=== PATIENT | female | born 1940 | race Caucasian/White ===

== ENCOUNTER 2019-12-17 11:10 | Outpatient (REF) | payer MEDICARE, SELFPAY ==
[2019-12-17 14:04] LABS: Estimated Average Glucose 126 mg/dL
[2019-12-17 15:04] LABS: Alanine Aminotransferase 19 U/L (0-31); Anion Gap 11 (12-20); Aspartate Amino Transferase 22 U/L (5-31); Blood Urea Nitrogen 19 mg/dL (9-16); Calcium 10.1 mg/dL (8.4-10.2); Carbon Dioxide 29 mmol/L (22-29); Chloride 105 mmol/L (96-108); Cholesterol 166 mg/dL; Estimated Glomerular Filt Rate > 60; Glucose Fasting 90 mg/dL (60-99); HDL Cholesterol 52 mg/dL; LDL Cholesterol Calculated 99 mg/dl; Potassium 4.9 mmol/l (3.3-5.1); Sodium 140 mmol/L (135-145); Triglycerides 75 mg/dL
[2019-12-18 16:37] LABS: Calcium, Ionized 5.3 mg/dL (4.8-5.6)
== END 2019-12-17 11:11 | disposition home or self-care (01) ==
LOC: HO.HMGCLDS 11:10
PROVIDERS: PCP Internal Medicine; Visit Provider Internal Medicine
DX: E78.5 Hyperlipidemia, unspecified (principal); R73.01 Impaired fasting glucose; I10 Essential (primary) hypertension; E83.52 Hypercalcemia
CPT/HCPCS: 36415; 80048; 80061; 82330; 83036; 84450; 84460

== ENCOUNTER → 2020-01-12 07:38 | Outpatient (BNVA) | payer MEDICARE, SELFPAY | PROVIDERS: PCP Internal Medicine; Referring Provider Internal Medicine; Visit Provider Internal Medicine Endocrinology, Diabetes & Metabolism | DX: E83.52 Hypercalcemia (principal); E23.6 Other disorders of pituitary gland; M85.89 Other specified disorders of bone density and structure, multiple sites | CPT/HCPCS: 99214 ==

== ENCOUNTER 2020-07-06 10:35 | Outpatient (REF) | payer MEDICARE, SELFPAY ==
[2020-07-06 14:15] LABS: Albumin Level 4.3 g/dL (3.5-5.0)
[2020-07-06 14:27] LABS: Alanine Aminotransferase 17 U/L (0-31); Anion Gap 17 (12-20); Aspartate Amino Transferase 27 U/L (5-31); Blood Urea Nitrogen 22 mg/dL (9-16); Calcium 10.3 mg/dL (8.4-10.2); Carbon Dioxide 25 mmol/L (22-29); Chloride 104 mmol/L (96-108); Cholesterol 180 mg/dL; Estimated Glomerular Filt Rate > 60; Glucose Fasting 108 mg/dL (60-99); HDL Cholesterol 53 mg/dL; LDL Cholesterol Calculated 111 mg/dl; Magnesium 2.1 mg/dL (1.6-2.6); Phosphorus 3.1 mg/dL (2.7-4.5); Potassium 4.8 mmol/L (3.3-5.1); Sodium 141 mmol/L (135-145); Triglycerides 82 mg/dL
[2020-07-06 14:49] LABS: Vitamin D 25-OH Total 27.3 ng/mL (>30)
[2020-07-08 13:46] LABS: Calcium (PTHI) 10.3 mg/dL (8.6-10.4); PTHI 42 pg/mL (14-64)
[2020-07-09 10:36] LABS: Alkaline Phosphatase Bone 12.7 mcg/L (see note)
[2020-07-11 16:32] LABS: Collagen Type I C-Telopeptide 555 pg/mL (see note)
[2020-07-13 10:27] LABS: VITAMIN D (1,25 OH) D3 74 pg/mL; Vit D (1,25-Dihydroxy) Total 74 pg/mL (18-72); Vitamin D (1,25 OH) D2 <8 pg/mL
== END 2020-07-06 10:36 | disposition home or self-care (01) ==
LOC: HO.HMGCLDS 10:35
PROVIDERS: PCP Internal Medicine; Visit Provider Internal Medicine Endocrinology, Diabetes & Metabolism
DX: E78.5 Hyperlipidemia, unspecified (principal); I10 Essential (primary) hypertension; E83.52 Hypercalcemia; N95.1 Menopausal and female climacteric states; M85.89 Other specified disorders of bone density and structure, multiple sites; R73.01 Impaired fasting glucose
CPT/HCPCS: 36415; 80048; 80061; 82040; 82306; 82523; 82652; 83735; 83970; 84075; 84100; 84450; 84460

== ENCOUNTER → 2020-07-12 07:51 | Outpatient (BNVA) | payer MEDICARE, SELFPAY | PROVIDERS: PCP Internal Medicine; Visit Provider Internal Medicine Endocrinology, Diabetes & Metabolism | DX: E83.52 Hypercalcemia (principal); M85.89 Other specified disorders of bone density and structure, multiple sites | CPT/HCPCS: 99212 ==

== ENCOUNTER 2020-07-22 11:55 | Outpatient (REF) | payer MEDICARE, SELFPAY ==
--- NOTE | ~2020-07-22 | MM_ITS ---
EXAMINATION: MM SCREENING DIGITAL BREAST TOMOSYNTHESIS, BILATERAL CLINICAL INFORMATION: Screening. Asymptomatic. The lifetime risk of breast cancer based on the Tyrer-Cuzick Model is 2%. COMPARISON: Mammography: 01/21/2018, 12/31/2016, 09/27/2015 TECHNIQUE: Digital breast tomosynthesis is performed in both the craniocaudal and mediolateral oblique views along with computer-aided detection (CAD). Synthesized 2D images are generated from the tomosynthesis. FINDINGS: There are scattered areas of fibroglandular density (ACR BI-RADS breast composition Category b). There are no significant masses, abnormal calcifications, or other abnormalities. There is no developing density. Scattered bilateral round and coarse calcifications are again noted. There are stable grouped punctate round calcifications anterior upper outer right breast. No significant changes. MM/MM tomosynthesis screening BI IMPRESSION: No mammographic evidence of malignancy. ASSESSMENT: BI-RADS 2: Benign RECOMMENDATION: Routine annual mammography screening. This patient's information was entered into a reminder system with a target due date for their next mammogram.
== END 2020-07-22 11:56 | disposition home or self-care (01) ==
LOC: HO.MAMMO 11:55
PROVIDERS: PCP Internal Medicine; Visit Provider Internal Medicine
DX: Z12.31 Encounter for screening mammogram for malignant neoplasm of breast (principal)
CPT/HCPCS: 77063; 77067

== ENCOUNTER 2021-01-18 09:02 | Outpatient (REF) | payer MEDICARE, SELFPAY ==
[2021-01-18 12:31] LABS: Alanine Aminotransferase 17 U/L (0-31); Anion Gap 12 (12-20); Aspartate Amino Transferase 23 U/L (5-31); Blood Urea Nitrogen 27 mg/dL (9-16); Calcium 10.7 mg/dL (8.4-10.2); Carbon Dioxide 28 mmol/L (22-29); Chloride 104 mmol/L (96-108); Cholesterol 186 mg/dL; Estimated Glomerular Filt Rate > 60; Glucose Fasting 113 mg/dL (60-99); HDL Cholesterol 52 mg/dL; LDL Cholesterol Calculated 115 mg/dl; Potassium 4.9 mmol/L (3.3-5.1); Sodium 139 mmol/L (135-145); Triglycerides 97 mg/dL
[2021-01-18 12:34] LABS: Vitamin D 25-OH Total 30.3 ng/mL (>30)
== END 2021-01-18 09:03 | disposition home or self-care (01) ==
LOC: HO.HMGCLDS 09:02
PROVIDERS: Visit Provider Internal Medicine
DX: M85.89 Other specified disorders of bone density and structure, multiple sites (principal); E78.5 Hyperlipidemia, unspecified; R73.01 Impaired fasting glucose; I10 Essential (primary) hypertension; Z78.0 Asymptomatic menopausal state
CPT/HCPCS: 36415; 80048; 80061; 82306; 84450; 84460

== ENCOUNTER 2021-05-17 11:00 | Outpatient (RCR) | payer MEDICARE, SELFPAY ==
--- NOTE | 2021-02-02 11:33 | MHC.PT.EP ---
[facility] [place] Office [place] Office [place] Office [address] Reny Liang [address] [phone] F: [phone] F: [phone] F: [phone] F: [phone] Physical Therapy Plan of Care Date of Evaluation: Date of Surgery: Diagnosis: This is a 81 yo female presenting to skilled PT with a script for low back pain and posterior R knee pain Assessment: This is a 81 yo female presenting to skilled PT with a script for low back pain and posterior R knee pain. She reports that her symptoms have been ongoing for about a month and a half now, no injury noted. She went to the walk-in clinic who sent her to her PCP and then referred her here (no imaging done, was provided muscle relaxers). 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 She feels better with sitting at the edge of a chair. Her pain is located at the R side low back pain (sharp), runs down the back of the R leg (achy but can be tingling at times to the foot). She also has a pin point spot at the posterior lateral aspect of the R knee that is tender to touch (this pain is constant). She is currently taking Tylenol arthritis that helps with the pain but when it wears off the pain returns. Assessment reveals pain that ranges up to an 8/10 at the worst. She demos decreased R hip and lumbar ROM, decreased BLE and core strength strength, impaired gait pattern with WBOS and lateral sway, impaired joint mobility with + s/s consistent with SIJ involvement as well as gross functional decline with walking, standing and sleeping. She is a good candidate for skilled PT 2x/wk for 6 wks. Frequency and Duration: The patient will be seen 2x/wk for 6wks Short Term Goals: I in HEP Demo proper core stab/TAC in HL, progress to sitting and standing Centralize symptoms in 2 weeks Custodial Goals: Demos functional ROM and strength Improve Oswestry by at least 10 points Improve pain at the worst to no more than 2/10 Tolerate sleeping through the night without waking from pain Treatment Plan: Modalities to reduce pain, spasms and effusion. Manual therapy to restore motion and function. Therapeutic exercise to improve strength and flexibility. Neuromuscular re-education for posture and balance. Therapeutic activities to return to functional activities of daily living. Electronically signed by: Bonnie Brock PT Please sign and return to therapist. Thank you for your referral.
--- NOTE | 2021-04-12 11:56 | MHC.PT.PR ---
[facility] [place] Office [place] Office [place] Office [address] [phone] F: [phone] F: [phone] F: [phone] F: [phone] Physical Therapy Progress Note Diagnosis: This is a 81 yo female presenting to skilled PT with a script for low back pain and posterior R knee pain Date of Surgery: Date of Evaluation: 02/02/21 Treatments to Date: 8 Cancellations to Date: 0 No Shows to Date: 0 Subjective: Patient comes in reporting I am walking better, whatever you did helped. Pain Score and Location: 0 low back R side and R leg Objective Measures: Please see eval Assessment: 04/12: Charla returns reporting that the last session was helpful with pain and gait pattern. She reports that she feels like she is getting stronger even though she does not always do her HEP. She continues to have a tender palpable nodule at the posterior R knee. I educated her that I do not think this is sciatica. She may benefit from an image of her knee to better dx this. She is also concerned that she has not been called by her PCP for a BP check. She states that she was supposed to go but her appointment was cancelled and she has not heard back from the office since. States that her BP was in 180-190's last night. I took her BP manually in clinic which was 148/92. She requested that I send a message through the portal to see if she could be seen for both her knee to see if image is warranted and for a BP check. PT Plan: Continue with PT Frequency and Duration: The patient will be seen 2x/wk for 6wks Treatment Plan: Therapeutic Exercise Dynamic Therapeutic Activities Neuromuscular Re-ed Manual Therapies Gait Home Exercise Program Patient Education Hot or Cold Pack Continue PT POC Reviewed/ Agreed with Student Documentation: Therapist: Thank you once again for your referral.
--- NOTE | 2021-05-17 12:54 | MHC.PT.DC ---
[facility] [place] Office [place] Office [place] Office [address] [phone] F: [phone] F: [phone] F: [phone] F: [phone] Physical Therapy Discharge Report Diagnosis: This is a 81 yo female presenting to skilled PT with a script for low back pain and posterior R knee pain Date of Surgery: Date of Evaluation: 02/02/21 Date of Discharge: 05/17/21 Treatments to Date: 13 Cancellations to Date: 0 No Shows to Date: 0 Discharge Status: Achieved Goals Improved Function Independent with HEP Discharge Summary: Charla is doing much better, pain and gait have improved since initial eval. She has a thorough HEP and is I in her program. She also participates in water aerobics. She no longer has leg pain and has met her PT goals. She is I and ready for DC at this time. DC to HEP. Electronically signed by: Bonnie Brock, PT Please sign and return to therapist. Thank you for your referral.
== END 2021-05-17 12:54 | disposition home or self-care (01) ==
LOC: HO.PTCHIC 11:00
PROVIDERS: PCP Internal Medicine; Visit Provider Internal Medicine
DX: M54.50 Low back pain, unspecified (principal); M25.561 Pain in right knee
CPT/HCPCS: 97035; 97110; 97140; 97162

== ENCOUNTER 2021-06-08 10:35 | Outpatient (REF) | payer MEDICARE, SELFPAY ==
[2021-06-08 14:29] LABS: Alanine Aminotransferase 20 U/L (0-31); Anion Gap 12 (12-20); Aspartate Amino Transferase 22 U/L (5-31); Blood Urea Nitrogen 24 mg/dL (9-16); Calcium 10.1 mg/dL (8.4-10.2); Carbon Dioxide 27 mmol/L (22-29); Chloride 106 mmol/L (96-108); Cholesterol 170 mg/dL; Estimated Glomerular Filt Rate > 60; Glucose Fasting 104 mg/dL (60-99); HDL Cholesterol 54 mg/dL; LDL Cholesterol Calculated 101 mg/dl; Potassium 4.8 mmol/L (3.3-5.1); Sodium 140 mmol/L (135-145); Triglycerides 77 mg/dL
[2021-06-08 14:39] LABS: Estimated Average Glucose 128 mg/dL; Hemoglobin A1c % 6.1 %
[2021-06-08 14:50] LABS: Vitamin D 25-OH Total 26.7 ng/mL (>30)
== END 2021-06-08 10:36 | disposition home or self-care (01) ==
LOC: HO.HMGCLDS 10:35
PROVIDERS: PCP Internal Medicine; Visit Provider Internal Medicine
DX: E66.9 Obesity, unspecified (principal); N95.1 Menopausal and female climacteric states; M85.89 Other specified disorders of bone density and structure, multiple sites; R73.01 Impaired fasting glucose; E78.5 Hyperlipidemia, unspecified; I10 Essential (primary) hypertension
CPT/HCPCS: 36415; 80048; 80061; 82306; 83036; 84450; 84460

== ENCOUNTER → 2021-09-05 07:59 | Outpatient (BNVA) | payer MEDICARE, SELFPAY | PROVIDERS: PCP Internal Medicine; Visit Provider Internal Medicine Endocrinology, Diabetes & Metabolism | DX: E83.52 Hypercalcemia (principal) | CPT/HCPCS: 99212 ==

== ENCOUNTER 2021-11-07 08:35 | Outpatient (REF) | payer MEDICARE, SELFPAY ==
--- NOTE | ~2021-11-07 | MM_ITS ---
EXAMINATION: BONE DENSITOMETRY CLINICAL INDICATION: Osteopenia. COMPARISON: Previous BD dated 10/27/2019 and baseline BD dated 09/07/2014. TECHNIQUE: Using a [employer] DXA System (software version: 13.1) manufactured by [employer], dual-energy x-ray absorptiometry was performed of the lumbar spine and left hip. The images are of good technical quality. Summary results are attached. FINDINGS: AP SPINE L1-L4: Current: BMD 1.362 g/cm2, Z-score 2.7, T-score 1.5, normal, 0.7% decrease from previous, 4.1% decrease from baseline (<5% change is not significant). Prior: BMD 1.372 g/cm2. Baseline: BMD 1.420 g/cm2. LEFT FEMUR, NECK: Current: BMD 0.716 g/cm2, Z-score -0.6, T-score -2.3, osteopenia. Prior: BMD 0.725 g/cm2. Baseline: BMD 0.841 g/cm2. LEFT FEMUR, TOTAL: Current: BMD 0.903 g/cm2, Z-score 0.7, T-score -0.8, normal, 1.1% decrease from previous, 10.3% decrease from baseline (<5% change is not significant). Prior: BMD 0.913 g/cm2. Baseline: BMD 1.007 g/cm2. IDENTIFIED RISK FACTORS: Early menopause, height loss, secondary osteoporosis. HISTORY OF FRACTURE: None listed. MEDICATIONS: Vitamin D. MM/XR DEXA axial skeleton IMPRESSION: 1. DIAGNOSIS: Osteopenia based on the lowest T-score value of -2.3 in the femoral neck applying World Health Organization criteria. 2. 10-YEAR FRACTURE RISK PREDICTION, FRAX: Major osteoporotic fracture (clinical spine, forearm, hip or shoulder) 15.8%. Hip fracture 4.9%. 3. Treatment Recommendations: NOF guidelines recommend consideration for treatment in postmenopausal women and men age 50 and older presenting with the following: -A hip or vertebral (clinical or morphometric) fracture. -T-score less than or equal to -2.5 at the femoral neck or spine after appropriate evaluation to exclude secondary causes. -Low bone mass at the hip or spine and a 10-year fracture probability by FRAX of greater than or equal to 3% for hip fracture or greater than or equal to 20% for major osteoporotic fracture based on the [place] adapted WHO algorithm. 4. Other Recommendations: All treatment decisions require clinical judgment and consideration of individual patient factors, including patient preferences, comorbidities, previous drug use, risk factors not captured in the FRAX model (e.g. frailty, falls, vitamin D deficiency, increased bone turnover, interval significant decline in bone density) and possible under or overestimation of fracture risk by FRAX. Additional medical evaluation for secondary cause of low bone mineral density may be appropriate. FUTURE SCAN RECOMMENDATION: People with diagnosed cases of osteoporosis or at high risk for fracture should have regular bone mineral density tests. For patients eligible for Medicare, routine testing is allowed once every 2 years. The testing frequency can be increased to one year for patients who have rapidly progressing disease, those who are receiving or discontinuing medical therapy to restore bone mass, or have additional risk factors.
--- NOTE | ~2021-11-07 | MM_ITS ---
EXAMINATION: MM SCREENING DIGITAL BREAST TOMOSYNTHESIS, BILATERAL CLINICAL INFORMATION: Screening. Asymptomatic. The lifetime risk of breast cancer based on the Tyrer-Cuzick Model is 1.5%. COMPARISON: Mammography: July 22, 2020 and studies dating back to August 01, 2009 TECHNIQUE: Digital breast tomosynthesis is performed in both the craniocaudal and mediolateral oblique views along with computer-aided detection (CAD). Synthesized 2D images are generated from the tomosynthesis. FINDINGS: There are scattered areas of fibroglandular density (ACR BI-RADS breast composition Category b). There are no new significant masses, abnormal calcifications, or other abnormalities. This density about the anterior lateral aspect of the right breast on craniocaudal view however on young symphysis views this is seen to represent a fold. MM/MM tomosynthesis screening BI IMPRESSION: No mammographic evidence of malignancy. ASSESSMENT: BI-RADS 2: Benign RECOMMENDATION: Routine annual mammography screening. This patient's information was entered into a reminder system with a target due date for their next mammogram.
== END 2021-11-07 08:36 | disposition home or self-care (01) ==
LOC: HO.MAMMO 08:35
PROVIDERS: Visit Provider Internal Medicine
DX: Z12.31 Encounter for screening mammogram for malignant neoplasm of breast (principal); Z13.820 Encounter for screening for osteoporosis; Z78.0 Asymptomatic menopausal state; M85.89 Other specified disorders of bone density and structure, multiple sites
CPT/HCPCS: 77063; 77067; 77080

== ENCOUNTER 2022-02-27 07:30 | Outpatient (REF) | payer MEDICARE, SELFPAY ==
[2022-02-27 12:21] LABS: Estimated Average Glucose 123 mg/dL; Hemoglobin A1c % 5.9 %
[2022-02-27 12:51] LABS: Alanine Aminotransferase 23 U/L (0-31); Anion Gap 12 (12-20); Aspartate Amino Transferase 25 U/L (5-31); Blood Urea Nitrogen 25 mg/dL (9-16); Calcium 10.5 mg/dL (8.4-10.2); Carbon Dioxide 30 mmol/L (22-29); Chloride 106 mmol/L (96-108); Cholesterol 174 mg/dL; Estimated Glomerular Filt Rate > 60; Glucose Fasting 123 mg/dL (60-99); HDL Cholesterol 58 mg/dL; LDL Cholesterol Calculated 102 mg/dl; Potassium 4.2 mmol/L (3.3-5.1); Sodium 144 mmol/L (135-145); Triglycerides 73 mg/dL; Vitamin D 25-OH Total 34.8 ng/mL (>30)
== END 2022-02-27 07:31 | disposition home or self-care (01) ==
LOC: HO.HMGCLDS 07:30
PROVIDERS: PCP Internal Medicine; Visit Provider Internal Medicine
DX: E78.5 Hyperlipidemia, unspecified (principal); I10 Essential (primary) hypertension; M85.89 Other specified disorders of bone density and structure, multiple sites; R73.01 Impaired fasting glucose; Z78.0 Asymptomatic menopausal state
CPT/HCPCS: 36415; 80048; 80061; 82306; 83036; 84450; 84460

== ENCOUNTER 2022-06-01 09:46 | Outpatient (REF) | payer MEDICARE, SELFPAY ==
[2022-06-01 13:01] LABS: Estimated Average Glucose 120 mg/dL; Hemoglobin A1c % 5.8 %
[2022-06-01 13:21] LABS: Alanine Aminotransferase 14 U/L (0-31); Anion Gap 11 (12-20); Aspartate Amino Transferase 20 U/L (5-31); Blood Urea Nitrogen 21 mg/dL (9-16); Calcium 9.9 mg/dL (8.4-10.2); Carbon Dioxide 28 mmol/L (22-29); Chloride 102 mmol/L (96-108); Cholesterol 176 mg/dL; Estimated Glomerular Filt Rate > 60; Glucose Fasting 119 mg/dL (60-99); HDL Cholesterol 49 mg/dL; LDL Cholesterol Calculated 111 mg/dl; Potassium 4.2 mmol/L (3.3-5.1); Sodium 137 mmol/L (135-145); Triglycerides 83 mg/dL
[2022-06-04 14:04] LABS: Calcium (PTHI) 10.3 mg/dL (8.6-10.4); PTHI 14 pg/mL (16-77)
[2022-06-05 19:33] LABS: Calcium, Ionized 5.4 mg/dL (4.7-5.5)
== END 2022-06-01 09:47 | disposition home or self-care (01) ==
LOC: HO.HMGCLDS 09:46
PROVIDERS: Visit Provider Internal Medicine
DX: E66.9 Obesity, unspecified (principal); E78.5 Hyperlipidemia, unspecified; E83.52 Hypercalcemia; I10 Essential (primary) hypertension; R73.01 Impaired fasting glucose
CPT/HCPCS: 36415; 80048; 80061; 82330; 83036; 83970; 84450; 84460

== ENCOUNTER 2022-11-07 10:09 | Outpatient (REF) | payer MEDICARE, SELFPAY ==
[2022-11-07 14:03] LABS: Alanine Aminotransferase 11 U/L (0-31); Anion Gap 11 (12-20); Aspartate Amino Transferase 18 U/L (5-31); Blood Urea Nitrogen 18 mg/dL (9-16); Calcium 10.5 mg/dL (8.4-10.2); Carbon Dioxide 26 mmol/L (22-29); Chloride 100 mmol/L (96-108); Cholesterol 175 mg/dL (<200); Estimated Glomerular Filt Rate > 60; Glucose Fasting 118 mg/dL (60-99); HDL Cholesterol 50 mg/dL (>40); LDL Cholesterol Calculated 101 mg/dL (<100); Potassium 4.2 mmol/L (3.3-5.1); Sodium 133 mmol/L (135-145); Triglycerides 120 mg/dL (<150)
[2022-11-07 14:18] LABS: Estimated Average Glucose 117 mg/dL; Hemoglobin A1c % 5.7 % (<6.0)
[2022-11-07 14:24] LABS: Vitamin D 25-OH Total 46.4 ng/mL (>30)
== END 2022-11-07 10:10 | disposition home or self-care (01) ==
LOC: HO.HMGCLDS 10:09
PROVIDERS: PCP Internal Medicine; Visit Provider Internal Medicine
DX: E66.9 Obesity, unspecified (principal); E78.5 Hyperlipidemia, unspecified; I10 Essential (primary) hypertension; M85.89 Other specified disorders of bone density and structure, multiple sites; N39.3 Stress incontinence (female) (male); N95.1 Menopausal and female climacteric states; R73.01 Impaired fasting glucose
CPT/HCPCS: 36415; 80048; 80061; 82306; 83036; 84450; 84460

== ENCOUNTER 2022-11-12 11:31 | Outpatient (AMB) | payer MEDICARE, SELFPAY ==
--- NOTE | 2022-11-12 11:46 | A.OFFPC_ITS ---
Vital Signs 11/12/22 12:02 Height 5 ft Weight 182 lb BMI 35.5 BP 128/84 Blood Pressure Location Rt brachial Position Sitting Pulse 66 Pulse Source Pulse Oximeter Pulse Oximetry (%) 98 Oxygen Delivery Method Room Air Intake Visit Reasons: 6m follow up HTN Intake Note: Pt is here today for her 6 mo. f/u HTN Allergies Yjdnqtl-JFN-UsD Reductase Inhibitor [Hmg-Coa Reductase Inhibitors (Stati] Allergy (Severe, Verified 11/12/22 12:27) SWELLING Medication List - Last Reconciled 11/12/22 by Adrienne Ruiz MD atenolol 100 mg PO DAILY cholecalciferol (vitamin D3) 25 mcg PO DAILY cyanocobalamin (vitamin B-12) 1,000 mcg PO DAILY fenofibrate nanocrystallized 145 mg PO DAILY fluticasone propionate 50 mcg/actuation (Aller-Kyle) 1 spray intranasal DAILY olmesartan-hydrochlorothiazide 20-12.5 mg 1 tab PO DAILY oxybutynin chloride ER 10 mg PO DAILY Tobacco use date assessed: 11/12/22 Fall risk assessment: No Falls in past year Last assessed Fall Risk: 11/12/22 Dental Screening Dental Screen Date: 11/12/22 Did you have a dental visit in the last 12 months?: Yes Did you have a dental problem in the last 6 months where you did not have access to dental care?: No Was dental information given to patient?: Patient has dentist HPI 6m follow up HTN HPI Details 81-year-old lady here today accompanied by daughter for her follow-up. She has hypertension, prediabetes, dyslipidemia, and osteopenia of multiple sites. Has been compliant with taking her medications, with blood pressure today within normal limits. She had recent fasting labs done which showed elevated fasting glucose but the hemoglobin A1c is at 5.7%, fasting lipids are within normal limits as well as vitamin-D level, calcium mildly elevated at 10.5. She has been evaluated by Dr. Mayo in the past for possible hyperpar athyroidism which came back normal. Patient however has been complaining of getting more short of breath on exertion and has a dry cough all the time. Patient's daughter states that they would have to stop several times during their walks for her to catch her breath. 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 She has been seen at [facility] in by Dr. Dawson January 15, 2019 for evaluation of her chronic cough and was also mention that she was seen previously in 2010 with similar symptoms. Cough seems to be triggered by different chemicals at work and would also was need to take a cough drop to stop coughing. She has minimal GERD, and has a persistent postnasal drip. Has been taking Claritin and tried several [id number] antihistamines which affords only temporary relief. She has not had any abnormal weight loss, and overall feels well except for symptoms mentioned. She has history of nodules, and in [address] done which showed a 3 mm nodule in the left lung base and two 2 mm nodules at the right lung base, , and 0 4 mm nodule at the right lung base. She has been referred to Dr. Kate for evaluation at that time. Chest x- ray done 07/21/2018 showed clear lung marquez bilaterally. Repeat CT of chest without contrast done 05/14/2019 showed presence of numerous solid bilateral lung nodules, the largest is 7 mm right upper lobe nodule and these are unchanged from the prior exam 02/02/2019 , without new or enlarging nodules seen, no pleural effusion or pneumothorax noted. She was supposed to have a repeat CT of chest but was lost to follow-up during the pandemic. Cough was suspected to be related to postnasal drip and GERD and she was started on Flonase nasal spray and recommended to start omeprazole 20 mg twice a day. Patient states that she has been using the spray and omeprazole which does not seem to afford much improvement . For patient has not really been taking medications regularly.. As per patient of pulmonary function test with methacholine challenge was also done at that time but results unavailable to me. Also has been complaining of increasing urinary stress and urge incontinence, despite taking oxybutynin ER 10 mg daily. States that effect of medication does not last at 24 are. [facility] Medical History (Updated 11/13/22 @ 05:12 by Adrienne Ruiz MD) Allergic rhinitis with postnasal drip Breast cancer screening by mammogram Dyslipidemia Empty sella Essential hypertension Exertional dyspnea Female stress incontinence Hypercalcemia Impaired fasting glucose Obesity Osteopenia of multiple sites Post menopausal syndrome Pulmonary nodules Recurrent dry cough Vitamin D deficiency Surgical History History of tonsillectomy History of tubal ligation Family History Father Alcoholic Mental illness in member of household Mother Colon cancer Brother CVD (cardiovascular disease) Heart disease Brother Heart disease Sister No problems noted. Sister No problems noted. Sister No problems noted. Son No problems noted. Daughter No problems noted. Social History Housing: House Alcohol intake: current Patient Tobacco Use Status: Never used Tobacco e-Cigarette/Vaping Use: Never Used Current occupational status: retired Cognitive needs: No Hearing needs: No Vision needs: Yes Questionnaire Thrive Questionnaire Date Thrive assessed: 06/06/22 AUDIT C Alcohol Use Questionnaire (AUDIT-C) 1. How often do you have a drink containing alcohol?: Monthly or less 2. How many drinks containing alcohol do you have on a typical day when you are drinking?: 1 or 2 3. How often do you have six or more drinks on one occasion?: Never Total Score: 1 ERYN-7 AMB Questionnaire ERYN-7 Date ERYN - 7 assessed: 06/06/22 Source: Developed by Drs. Edinson Junior, Linda Little, Giovanni Kramer and colleagues, with an educational johanna from [employer]. Review of Systems Const Denies fatigue, Denies frequent falls, Denies headache(s), Denies lethargy and Denies weakness Eyes Denies change in vision ENT Reports Normal hearing present, Denies dysphagia, Denies dizziness, Denies dry mouth, Denies headache(s), Denies hoarseness, Denies sinus pain and Denies sore throat Card Denies chest pain and Denies irregular heart rhythm Resp Reports as per HPI GI Denies abdominal pain, Denies bloating, Denies change in bowel habits, Denies dy sphagia, Denies nausea and Denies vomiting Reports as per HPI, Denies urinary frequency, Denies difficulty voiding and Denies dysuria Musc Denies back pain, Denies muscle cramps, Denies numbness and Denies tingling Neuro Reports Normal hearing present, Denies burning sensations, Denies dizziness, Denies frequent falls, Denies headache(s), Denies numbness, Denies Sensory deficit (Neuro), Denies tingling, Denies paresthesias, Denies tremor(s) and Denies weakness Endo Denies fatigue, Denies polyphagia, Denies polydipsia and Denies polyuria Brennon/Lymph Denies easy bleeding and Denies easy bruising Aller/Immun Reports no additional complaints Physical exam (Primary Care) Vital Signs: Last Vital Signs Pulse 66 11/12/22 12:02 BP 128/84 11/12/22 12:02 Pulse Ox 98 11/12/22 12:02 Oxygen Delivery Method Room Air 11/12/22 12:02 BMI result Body Mass Index 35.5 Tobacco/Smoking Status: Tobacco use Status Tobacco use date assessed 11/12/22 11/12/22 12:05 Patient Tobacco Use Status Never used Tobacco 11/12/22 11:46 e-Cigarette/Vaping Use Never Used 11/12/22 11:46 Thrive Assessment: Date of Thrive Assessment Date Thrive assessed 06/06/22 11/12/22 11:46 Const General: comfortable and no acute distress Orientation/consciousness: patient oriented x3 HENMT Head: Yes normocephalic Ears: hearing grossly normal bilaterally, external ears normal, TM's normal bilaterally and EAC's normal General nose exam: Normal external nose present and No nasal discharge present Face and sinus: Yes face symmetric Mouth: Normal oral and palatal mucosa present and moist mucous membranes Eyes General: appearance normal, both eyes and all related structures Neck Neck: Yes full ROM, Yes no lymphadenopathy and Yes supple Chest Other: Declined exam Resp Auscultation: clear to auscultation bilaterally Cardio Rate: regular rate Rhythm: regular rhythm Heart sounds: S1 normal heart sound present and S2 normal heart sound present GI Palpation (GI): Soft to palpation, nontender and no guarding General: Yes no CVA tenderness Back/Spine/Pelvis Back: no CVA tenderness and No back tenderness Skin General skin exam: no rashes or lesions noted Neuro General: patient oriented x3, gait normal, tone normal, moves all extremities, Normal light touch and pain sensation and no focal motor deficits Cranial nerves: Yes Normal hearing present Sensory Exam: No Sensory deficit (Neuro) Extrem General: Yes full ROM, Yes no joint enlargement, Yes no pedal edema and Yes normal gait Results Reviewed Results Reviewed: Name: AndrewCharla perkins Age/Sex: 81/F : 1940 Unit#: [id number] Attend Dr: Adrienne Ruiz MD Re11/07/22 Status: DEP REF Location: [facility] Disch: SPEC : [id number] LIZETTE: 11/07/22 STATUS: COMP REQ : [id number] RECD: 11/07/22-[address]: Adrienne Ruiz MD COMP: 11/07/22 ENTERED: 11/07/22-[address]: ORDERED: Met Prof Fast, AST, ALT, Lipid Panel, Vitamin D 25-OH Test Result Flag Reference Site Sodium 133 L 135-145 mmol/L Potassium 4.2 3.3-5.1 mmol/L CL 100 96-108 mmol/L CO2 26 22-29 mmol/L Gap 11 L 12-20 BUN 18 H 9-16 mg/dL Creat 0.79 0.5-1.4 mg/dL EGFR > 60 NOTE: For -[place] individuals, multiply the result by 1.210. Chronic Kidney Disease: Estimated GFR < 60 mL/min/1.73m2 Severe Kidney Disease: Estimated GFR < 15 mL/min/1.73m2 FBS 118 H 60-99 mg/dL A fasting glucose from 100-125 mg/dl is considered impaired (pre-diabetes). CA 10.5 # H 8.4-10.2 mg/dL AST (GOT) 18 5-31 U/L ALT (GPT) 11 0-31 U/L Triglyceride 120 <150 mg/dL Desirable Triglyceride: less than 150 mg/dL Borderline High Triglyceride 150-199 mg/dL High Triglyceride: 200-499 mg/dL Very High Triglyceride: greater than or equal to 5OO mg/dL Cholesterol 175 <200 mg/dL Desirable Cholesterol: less than 200 mg/dL Borderline High Cholesterol: 200-239 mg/dL High Cholesterol: greater than 239 mg/dL LDL Calculated 101 H <100 mg/dL Desirable LDL: less than 100 mg/dL Near Optimal/Above Optimal LDL: 110-129 mg/dL Borderline High LDL: 130-159 mg/dL High LDL: 160-189 mg/dL Very High LDL: greater than or equal to 190 mg/dL HDL 50 >40 mg/dL Desirable HDL: greater than 40 mg/dL Note: This HDL assay may give artificially low results in patients with liver disease. Vit D 25-OH Tot 46.4 >30 ng/mL Health Based Reference Values* < 20 ng/mL Deficient 20-30 ng/mL Insufficient > 30 ng/mL Sufficient Laboratory Tests 11/07/22 10:18 Estimat Average Glucose 117 Hemoglobin A1c % 5.7 Assessment and Plan Assessment & Plan (1) Recurrent dry cough: Code(s): R05.8 - Other specified cough Plan: Will obtain pulmonary consult (2) Exertional dyspnea: Code(s): R06.09 - Other forms of dyspnea Plan: Obtain pulmonary consult (3) Pulmonary nodules: Code(s): R91.8 - Other nonspecific abnormal finding of lung field (4) Obesity: Code(s): E66.9 - Obesity, unspecified Plan: Discussed need to increase activity and wt reduction. Recommended focusing on improving your health instead of dieting. : Eat Mediterranean diet, limit foods high in fat, sugar, and calories, eat slowly, pay attention to portion sizes, plan your meals ahead of time, start regular physical activity 150 minutes of moderate intensity exercise or 90 minutes/week of vigorous exercise and increase water intake. (5) Female stress incontinence: Code(s): N39.3 - Stress incontinence (female) (male) Plan: Will increase oxybutynin ER dose to 50 mg once a day in a.m.. Advised to do bladder training, use the bathroom at least every 2 hours during the day, avoid over filling, and avoid drinking a lot of caffeinated drinks (6) Impaired fasting glucose: Code(s): R73.01 - Impaired fasting glucose Plan: Your fasting blood sugars elevated above 100 mg/dL. Impaired glucose metabolism O2 at risk for developing diabetes mellitus type 2, as well as heart attack and stroke later on. Lifestyle changes at just weight loss, healthy eating habits, and regular exercise are important, and can prevent the progression to diabetes (7) Dyslipidemia: Code(s): E78.5 - Hyperlipidemia, unspecified Plan: Reviewed recent fasting lipid profile with patient with levels within normal limits . Continue with 5 5 mg daily , in addition to adherence to low- cholesterol diet and regular exercise, at least 30 minutes 3 to 4 times a week. Advised patient to make healthy food choices, eat more fruits, vegetables, whole grains, wild caught fish and low-fat dairy. Limit amount of meat and fried or fatty food products, as well as processed foods and fast foods. Follow-up scheduled with repeat fasting lipid panel in 3 months. (8) Essential hypertension: Code(s): I10 - Essential (primary) hypertension Plan: Blood pressure at goal of less than 130/80. Continue with atenolol 100 mg daily, and olmesartan-hydrochlorothiazide 20-12.5 mg daily. Reinforced importance of following a low sodium diet, getting regular exercise, and lowering stress levels. (9) Allergic rhinitis with postnasal drip: Code(s): J30.9 - Allergic rhinitis, unspecified; R09.82 - Postnasal drip Plan: Advise to continue using her Flonase nasal spray once a day either a.m. or p.m. and will try on fexofenadine 60 mg per tablet to take 1 every 12 hours as needed for nasal congestion and postnasal drainage. (10) Hypercalcemia: Code(s): E83.52 - Hypercalcemia Plan: Repeat serum ionized calcium Orders: Orders Alanine Aminotransferase 02/15/23 E66.9 - Obesity, unspecified, E78.5 - Hyperlipidemia, unspecified, I10 - Essential (primary) hypertension, N39.3 - Stress incontinence (female) (male), R73.01 - Impaired fasting glucose Aspartate Amino Transferase 02/15/23 E66.9 - Obesity, unspecified, E78.5 - Hyperlipidemia, unspecified, I10 - Essential (primary) hypertension, N39.3 - Stress incontinence (female) (male), R73.01 - Impaired fasting glucose Comprehensive [place]. Panel Fast 02/15/23 E66.9 - Obesity, unspecified, E78.5 - Hyperlipidemia, unspecified, I10 - Essential (primary) hypertension, N39.3 - Stress incontinence (female) (male), R73.01 - Impaired fasting glucose Hemoglobin A1c 02/15/23 E66.9 - Obesity, unspecified, E78.5 - Hyperlipidemia, unspecified, I10 - Essential (primary) hypertension, N39.3 - Stress incontinence (female) (male), R73.01 - Impaired fasting glucose Lipid Panel 02/15/23 E66.9 - Obesity, unspecified, E78.5 - Hyperlipidemia, unspecified, I10 - Essential (primary) hypertension, N39.3 - Stress incontinence (female) (male), R73.01 - Impaired fasting glucose Calcium, Ionized 02/15/23 E66.9 - Obesity, unspecified, E78.5 - Hyperlipidemia, unspecified, I10 - Essential (primary) hypertension, N39.3 - Stress incontinence (female) (male), R73.01 - Impaired fasting glucose Referrals Pulmonary Medicine Referral R05.8 - Other specified cough, R06.09 - Other forms of dyspnea, R91.8 - Other nonspecific abnormal finding of lung field Medications: New fexofenadine 60 mg PO Q12H PRN 60 tabs 0RF allergy symptoms Changed From oxybutynin chloride ER 10 mg PO DAILY 90 tabs 1RF To oxybutynin chloride ER 15 mg PO DAILY 30 tabs 1RF Coding Level of Care Code Est Pt Level 4 (64914) Diagnoses Recurrent dry cough R05.8 Exertional dyspnea R06.09 Pulmonary nodules R91.8 Obesity E66.9 Female stress incontinence N39.3 Impaired fasting glucose R73.01 Dyslipidemia E78.5 Essential hypertension I10 Allergic rhinitis with postnasal drip J30.9; R09.82 Hypercalcemia E83.52
[2022-11-12 12:02] VITALS: BP 128/84; PULSE 66; O2SAT 98; BMI 35.5
== END 2022-11-12 13:02 | disposition home or self-care (01) ==
PROVIDERS: Visit Provider Internal Medicine
DX: I10 Essential (primary) hypertension (principal); E66.9 Obesity, unspecified; E83.52 Hypercalcemia; Z68.35 Body mass index [BMI] 35.0-35.9, adult; R05.8 Other specified cough; R06.09 Other forms of dyspnea; R91.8 Other nonspecific abnormal finding of lung field; N39.3 Stress incontinence (female) (male); R73.01 Impaired fasting glucose; E78.5 Hyperlipidemia, unspecified; J30.9 Allergic rhinitis, unspecified; R09.82 Postnasal drip
CPT/HCPCS: 99214

== ENCOUNTER 2023-01-03 09:45 | Outpatient (AMB) | payer MEDICARE, SELFPAY ==
[2023-01-03 09:47] VITALS: BP 147/88; PULSE 73; O2SAT 99; BMI 35.1
--- NOTE | 2023-01-03 09:47 | MHC.OFFVIS ---
Intake Vital Signs 01/03/23 09:47 Height 5 ft Weight 179 lb 10.828 oz BMI 35.1 BP 147/88 H Blood Pressure Location Rt brachial Position Sitting Pulse 73 Pulse Source Doppler Pulse Oximetry (%) 99 Oxygen Delivery Method Room Air Intake Visit Reasons: Pulmonary nodule Allergies Vsfqrps-MRO-DyW Reductase Inhibitor [Hmg-Coa Reductase Inhibitors (Stati] Allergy (Severe, Verified 01/03/23 09:52) SWELLING HPI Pulmonary nodule HPI Details 82-year-old lady, lifetime nonsmoker, referred for evaluation of cough ongoing for 30-40 years intermittently productive of clear sputum. 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 She denies any other pulmonary related personal history. Patient does have a history of lung cancer in her mother who was an avid smoker. Patient used to have dogs. Currently she has no pets. She denies seasonal allergies. Patient has been tried on PPI, multiple allergy medications, and Mucinex with suboptimal control of his symptoms. She denies recent pulmonary function or allergy testing. Patient does have for CT scan from 2019 showing 7 mm pulmonary nodule with no further follow-up. [facility] Medical History (Updated 01/03/23 @ 10:30 by Олег Greenberg MD) Allergic rhinitis with postnasal drip Exertional dyspnea Recurrent dry cough Vitamin D deficiency Breast cancer screening by mammogram Empty sella Hypercalcemia Pulmonary nodules Obesity Post menopausal syndrome Osteopenia of multiple sites Female stress incontinence Impaired fasting glucose Dyslipidemia Essential hypertension Surgical History History of tubal ligation History of tonsillectomy Family History Father Alcoholic Mental illness in member of household Mother Colon cancer Brother CVD (cardiovascular disease) Heart disease Brother Heart disease Sister No problems noted. Sister No problems noted. Sister No problems noted. Son No problems noted. Daughter No problems noted. Social History Housing: House Alcohol intake: current Patient Tobacco Use Status: Never used Tobacco e-Cigarette/Vaping Use: Never Used Current occupational status: retired Cognitive needs: No Hearing needs: No Vision needs: Yes Review of Systems Const Denies daytime sleepiness, Denies excessive sweating, Denies fatigue, Denies fever(s), Denies lethargy, Denies malaise, Denies night sweats, Denies snoring and Denies weight loss Eyes Denies blurry vision and Denies itchy eyes ENT Denies nasal congestion, Denies post nasal drip, Denies sinus pain, Denies sinus pressure and Denies other ( Thrush) Card Denies chest pain, Denies pedal edema, Denies dyspnea, Reports dyspnea on exertion, Denies orthopnea and Denies paroxysmal nocturnal dyspnea Resp Reports cough, Denies hemoptysis, Denies excessive phlegm production, Denies dyspnea, Reports dyspnea on exertion, Denies snoring and Denies wheezing GI Denies abdominal pain and Denies heartburn Musc Denies myalgias, Denies arthralgias and Denies joint swelling Skin/Breast Denies rash Neuro Denies memory loss and Denies seizure-like activity Psych Denies abnormal sleep pattern, Denies anxiety and Denies memory loss Endo Denies excessive sweating, Denies fatigue and Denies heat intolerance Brennon/Lymph Denies easy bruising Aller/Immun Denies itchy eyes, Denies seasonal rhinorrhea and Denies wheezing Physical Exam Vital Signs: Last Vital Signs Pulse 73 01/03/23 09:47 BP 147/88 H 01/03/23 09:47 Pulse Ox 99 01/03/23 09:47 Oxygen Delivery Method Room Air 01/03/23 09:47 BMI result Body Mass Index 35.1 Const General: no acute distress and alert Nutritional Appearance: not obese Orientation/consciousness: Other orientation findings ( oriented) HEENT Head: Yes atraumatic Eyes General: appearance normal, both eyes and all related structures Sclerae: sclerae normal EOM: EOMs intact bilaterally Neck Neck: Yes supple Lymphatic: no lymphadenopathy noted Resp Effort & Inspection: normal respiratory effort and no use of accessory muscles Auscultation: clear to auscultation bilaterally Cardio Rate: regular rate Rhythm: regular rhythm Heart sounds: no gallops, no murmurs and no rubs Skin General skin exam: other ( warm) Extrem General: No clubbing, No cyanosis and No edema Assessment & Plan Assessment & Plan (1) Asthma: Code(s): J45.909 - Unspecified asthma, uncomplicated Plan: Likely underlying cough variant asthma. Will obtain full PFT. (2) Environmental allergies: Code(s): Z91.09 - Other allergy status, other than to drugs and biological substances Plan: Will obtain CBC with differential, IgE, and RAST for further evaluation. (3) Pulmonary nodules: Code(s): R91.8 - Other nonspecific abnormal finding of lung field Plan: Will repeat CT chest to assess previously noted 7 mm pulmonary nodule. (4) Exertional dyspnea: Code(s): R06.09 - Other forms of dyspnea Plan: Likely multifactorial. Will obtain 2D echocardiogram to assess cardiac contribution. Orders: Orders Complete Blood Count Auto Diff Today Z91.09 - Other allergy status, other than to drugs and biological substances Rast Allergen Today Z91.09 - Other allergy status, other than to drugs and biological substances PFT pulmonary function test Today Z91.09 - Other allergy status, other than to drugs and biological substances CT chest wo IV con Today R91.8 - Other nonspecific abnormal finding of lung field CA echo transthoracic complete Today R06.09 - Other forms of dyspnea Coding Level of Care Code New Pt Level 4 (29205) Diagnoses Asthma J45.909 Environmental allergies Z91.09 Pulmonary nodules R91.8 Exertional dyspnea R06.09
== END 2023-01-03 10:35 | disposition home or self-care (01) ==
PROVIDERS: PCP Internal Medicine; Referring Provider Internal Medicine; Visit Provider Internal Medicine Pulmonary Disease
DX: J45.909 Unspecified asthma, uncomplicated (principal); Z91.09 Other allergy status, other than to drugs and biological substances; R91.8 Other nonspecific abnormal finding of lung field; R06.09 Other forms of dyspnea
CPT/HCPCS: 99204

== ENCOUNTER 2023-01-03 09:45 | Outpatient (REF) | payer MEDICARE, SELFPAY ==
[2023-01-03 10:57] LABS: MANUAL DIFF FLAG NO
[2023-01-03 11:35] LABS: Basophils Percent Auto 0.6 % (0-2); Eosinophils Absolute Auto 0.1 X10*3/uL (0.0-0.4); Eosinophils Percent Auto 1.9 % (0-4); Hematocrit 38.5 % (37.0-47.0); Hemoglobin 12.5 g/dl (12.0-16.0); Imm Gran Abs Auto 0.02 X10*3/uL (0.00-0.03); Imm Gran Pct Auto 0.4 % (0.0-0.4); Lymphocytes Absolute Auto 1.2 X10*3/uL (1.2-4.9); Lymphocytes Percent Auto 21.8 % (20-40); Mean Corpuscular HGB Conc 32.5 g/dl (31.0-35.0); Mean Corpuscular Hemoglobin 28.5 pg (27.0-33.0); Mean Corpuscular Volume 87.9 fL (80.0-98.0); Monocytes Absolute Auto 0.4 X10*3/uL (0.1-1.2); Monocytes Percent Auto 7.1 % (2-11); Neutrophils Absolute Auto 3.6 x10*3/uL (2.0-8.3); Neutrophils Percent Auto 68.2 % (45-73); Platelet Count 263 X10*3/uL (160-400); Red Blood Count 4.38 X10*6/uL (4.20-5.50); Red Cell Distribution Width 13.6 % (11.0-16.0); White Blood Count 5.3 X10*3/uL (4.8-10.8)
== END 2023-01-03 09:46 | disposition home or self-care (01) ==
LOC: HO.LAB 09:45
PROVIDERS: PCP Internal Medicine; Referring Provider Internal Medicine; Visit Provider Internal Medicine Pulmonary Disease
DX: J45.909 Unspecified asthma, uncomplicated (principal); R91.8 Other nonspecific abnormal finding of lung field; Z91.09 Other allergy status, other than to drugs and biological substances; R06.09 Other forms of dyspnea
CPT/HCPCS: 36415; 82785; 85025; 86003

== ENCOUNTER → 2023-02-11 14:05 | Outpatient (REF) | payer MEDICARE, SELFPAY ==
--- NOTE | ~2023-02-11 | CT_ITS ---
EXAMINATION: CT CHEST WITHOUT CONTRAST CLINICAL INFORMATION: Pulmonary nodule COMPARISON: None available. TECHNIQUE: Multidetector volumetric CT imaging of the chest was done. Axial MIP volume rendering provided. Sagittal and coronal reformatted images were obtained. This CT examination was performed using dose optimization techniques as appropriate, variously including the following: *Automated exposure control *Adjustment of mA and/or kV according to patient size (this includes techniques or standardized protocols for targeted exams where dose is matched to indication/reason for exam; i.e. 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 There are multiple nodules measured between 2-4 mm seen through the left lung also, with irregular, lobulated, spiculated mass abating may fissure seen in the right upper lobe, tattering fissure and measured approximately 2.9 x 1.8 cm, with 2 components. The closest to the hilum component measured 1.7 x 1.6 cm. There is ill-defined right upper lobe spiculated nodule seen on image 200 mL CS 5, but the visualized on sagittal reconstruction where it was measured 1.1 x 0.7 cm MEDIASTINUM: No obvious mesenteric lymphadenopathy seen based on noncontrast technique, but the right hilum is prominent, most likely due to overlapping lymphadenopathy. Thoracic aorta is mildly dilated, measured 4 cm, ectatic. Pulmonary artery is not dilated. There is no pericardial effusion. Thyroid gland is unremarkable. CORONARY ARTERY CALCIFICATION: None visualized on this study. PLEURA: There is no pleural effusion. No pleural mass or thickening. AXILLA: No lymphadenopathy. UPPER ABDOMEN: There is 1.9 cm low-attenuation lesion in the upper pole of right kidney most likely cyst and there is an exophytic 1.9 cm lesion in the upper pole of left kidney, most likely cysts. OSSEOUS STRUCTURES: There are degenerative changes in thoracic spine and levoscoliosis of thoracic spine. There are no lytic or blastic lesions CT/CT chest wo IV con IMPRESSION: 1. Multiple lung nodules bilaterally, most likely metastatic disease. 2. Right upper lobe lung mass, most likely malignant. Correlate with PET/CT 3. Bilateral renal cysts. 4. Ectasia of ascending aorta. 5. Scoliosis of thoracic spine. Fleischner guidelines were followed.
--- NOTE | 2023-02-11 14:08 | CA_ITS ---
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 Normal LV ejection fraction 65-70% with impaired relaxation filling pattern 2. Calcific aortic valve changes noted with mild aortic stenosis not completely ruled out 3. Normal RV systolic pressure 4. Mildly dilated ascending aorta 3.9 cm 5. No pericardial effusion Findings Procedure Information Contrast agent, definity, is being given per protocol without apparent complications. Left Ventricle Normal left ventricular size, thickness, and systolic function. The visually estimated ejection fraction is between 65-70%. Spectral Doppler is indicative of an impaired relaxation filling pattern. E/E prime ratio is between 8 and 15 consistent with indeterminate filling pressures. Right Ventricle Normal right ventricular cavity size and systolic function. Atria Interatrial shunt cannot be excluded. Aortic Valve The aortic valve was not well visualized. There is moderate calcification of the aortic valve. The aortic valve area is 1.72 cm2. There is no aortic valve regurgitation. Mitral Valve There is mild anterior and posterior mitral leaflet thickening. There is mild mitral annular calcification. There is trace mitral valve regurgitation. There is no mitral valve stenosis. Pulmonic Valve The pulmonic valve was not well visualized. Tricuspid Valve Likely normal tricuspid valve structure and function. There is trace tricuspid valve regurgitation. The right ventricular systolic pressure is normal. The right ventricular systolic pressure is 17 mmHg. Normal right atrial pressure. There is no evidence of pulmonary hypertension. Great Vessels The pulmonary artery was not well visualized. There is mild dilatation of the ascending aorta measuring 3.90 cm. Venous The inferior vena cava is normal in size and collapses greater than 50% with inspiration. Pericardium/Pleural There is no evidence of pericardial effusion. Prior Study Comparison No prior study available for comparison. Measurements 2D Linear Measurements IVSd: 1.10 0.6-0.9/0.6-1.0 cm LVIDd: 4.37 3.9-5.3/4.2-5.9 cm LVIDd Index: 2.51 2.4-3.2/2.2-3.1 cm/m2 LVIDs: 2.45 2.0-3.6 cm LVPWd: 1.06 0.7-1.1 cm LA Diam: 4.00 2.7-3.8/3.0-4.0 cm LAIDs Index: 2.30 1.5-2.3 cm/m2 LV Mass: 202.79 67-162/88-224 g LV Mass Index: 116.55 43-95/49-115 g/m2 LVOT Diam: 1.90 3.0+(-)1.3 cm 2D Systolic Function EF 4C: 68.10 >55% EF 2C: 75.20 >55% EF BiP: 70.00 >55% Mitral Valve MV Pk E: 0.78 MV PK A: 0.84 MV Decel Time: 191.00 E/A: 0.90 E'Lateral: 7.42 E'Medial: 5.35 E/E' Med: 14.60 E/E' Lat: 10.50 PHT: 56.00 MVA PHT: 3.93 Decel [place]: 4.08 Aortic Valve AoV Pk Chu: 1.30 AoV Mn Chu: 1.06 AoV VTI: 0.36 AoV Pk Grad: 7.00 Aov Mn Grad: 5.00 JENNIFER Cont.VTI: 1.72 LVOT LVOT Pk Chu: 0.98 LVOT Mn Chu: 0.64 LVOT VTI: 0.22 LVOT Pk Grad: 4.00 LVOT Mn Grad: 2.00 LVOT Diam: 1.90 LVOT Area: 2.84 Diastolic Function MV Pk E: 0.78 MV Pk A: 0.84 E/A: 0.90 E'Medial: 5.35 E/E' Med: 14.60 E' Laterial: 7.42 E/E' Lat: 10.50 Tricuspid Valve TR Pk Chu: 1.90 TR Pk Grad: 14.00 RA Press: 3.00 RVSP: 17.00 Great Vessels Aorta Sinus of Valsalva: 3.60 2.0-3.5 cm Ao Asc: 3.90 2.1-3.4 cm Pulmonary Valve PV Pk Chu: 0.61 Peak PV Grad: 1.00 Updated in Other Vendor System with Status of Final Olvin Weinberg MD electronically signed on 02/11/2023 5:07:13 PM with status of Final
== END ==
LOC: HO.CARD 14:05
PROVIDERS: PCP Internal Medicine; Visit Provider Internal Medicine Pulmonary Disease
DX: R91.8 Other nonspecific abnormal finding of lung field (principal); R06.09 Other forms of dyspnea
CPT/HCPCS: 71250; 93306; Q9957

== ENCOUNTER → 2023-02-11 14:08 | Outpatient (BNV) | payer MEDICARE, SELFPAY | PROVIDERS: PCP Internal Medicine; Visit Provider Internal Medicine Cardiovascular Disease | DX: I35.8 Other nonrheumatic aortic valve disorders (principal); I34.81 Nonrheumatic mitral (valve) annulus calcification | CPT/HCPCS: 93306 ==

== ENCOUNTER 2023-02-11 15:13 | Outpatient (REF) | payer MEDICARE, SELFPAY ==
--- NOTE | 2023-02-11 15:30 | PFT_ITS ---
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 The patient does have around positive response to bronchodilators noted. Significant small airways disease. She moderate decrease in the maximum voluntary ventilation secondary to likely deconditioning. In addition, the patient does have a restrictive ventilatory defect consistent mild restrictive lung disease. The patient also has a significantly elevated diffusing capacity. This suggests of potential exogenous exposure to carbon monoxide. Please have the patient check their carbon monoxide alarms in their homes and also should assess for smoking and secondhand smoke. Clinical correlation warranted. MTDD
== END 2023-02-11 15:14 | disposition home or self-care (01) ==
LOC: HO.CT 15:13
PROVIDERS: PCP Internal Medicine; Visit Provider Internal Medicine Pulmonary Disease
DX: R91.8 Other nonspecific abnormal finding of lung field (principal)
CPT/HCPCS: 94010; 94727; 94729

== ENCOUNTER 2023-03-02 08:30 | Outpatient (REF) | payer MEDICARE, SELFPAY ==
[2023-03-02 11:15] LABS: Estimated Average Glucose 123 mg/dL; Hemoglobin A1c % 5.9 % (<6.0)
[2023-03-02 11:30] LABS: Alanine Aminotransferase 14 U/L (0-31); Albumin Level 4.1 g/dL (3.5-5.0); Alkaline Phosphatase 44 U/L (39-117); Anion Gap 14 (12-20); Aspartate Amino Transferase 24 U/L (5-31); Bilirubin Total 0.5 mg/dL (0.0-1.0); Blood Urea Nitrogen 18 mg/dL (9-16); Calcium 10.4 mg/dL (8.4-10.2); Carbon Dioxide 27 mmol/L (22-29); Chloride 99 mmol/L (96-108); Cholesterol 171 mg/dL (<200); Estimated Glomerular Filt Rate > 60; Glucose Fasting 115 mg/dL (60-99); HDL Cholesterol 54 mg/dL (>40); LDL Cholesterol Calculated 101 mg/dL (<100); Potassium 3.9 mmol/L (3.3-5.1); Sodium 136 mmol/L (135-145); Total Protein 7.1 g/dL (6.5-8.0); Triglycerides 83 mg/dL (<150)
[2023-03-02 15:29] LABS: Appearance Urine Clear; Color Urine Yellow; Glucose Urine UA Negative (Negative); Leukocyte Esterase Urine Trace (Negative); Nitrite Urine Negative (Negative); UMIC TRIGGER UACC YES; Urine Blood Negative (Negative); Urine Ketones Negative (Negative); Urine Protein Negative (Neg-Trace)
[2023-03-02 15:34] LABS: Bacteria Urine None Seen (None Seen); Hyaline Casts Urine 0-2 /LPF (0-2); RBC Urine 0-2 /HPF (0-2); Squamous Epithelial Cell Urine 0-2 /HPF (0-2); WBC Urine 0-5 /HPF (0-5)
[2023-03-04 17:44] LABS: Calcium, Ionized 5.6 mg/dL (4.7-5.5)
== END 2023-03-02 08:31 | disposition home or self-care (01) ==
LOC: HO.HMGCLDS 08:30
PROVIDERS: PCP Internal Medicine; Visit Provider Internal Medicine
DX: E66.9 Obesity, unspecified (principal); N39.3 Stress incontinence (female) (male); R73.01 Impaired fasting glucose; E78.5 Hyperlipidemia, unspecified; I10 Essential (primary) hypertension
CPT/HCPCS: 36415; 80053; 80061; 81001; 82330; 83036

== ENCOUNTER 2023-03-05 15:26 | Outpatient (AMB) | payer MEDICARE, SELFPAY ==
[2023-03-05 15:28] VITALS: BP 138/82; PULSE 67; O2SAT 97; BMI 35.1
--- NOTE | 2023-03-05 15:28 | MHC.OFFVIS ---
Intake Vital Signs 03/05/23 15:28 Height 5 ft Weight 179 lb 10.828 oz BMI 35.1 BP 138/82 Blood Pressure Location Rt brachial Position Sitting Pulse 67 Pulse Source Doppler Pulse Oximetry (%) 97 Oxygen Delivery Method Room Air Intake Visit Reasons: pulmonary nodule Allergies Owpipgi-LVW-JyD Reductase Inhibitor [Hmg-Coa Reductase Inhibitors (Stati] Allergy (Severe, Verified 03/05/23 15:35) SWELLING HPI pulmonary nodule HPI Details 82-year-old lady, lifetime nonsmoker, referred for evaluation of cough ongoing for 30-40 years intermittently productive of clear sputum. 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 She denies any other pulmonary related personal history. Patient does have a history of lung cancer in her mother who was an avid smoker. Patient used to have dogs. Currently she has no pets. She denies seasonal allergies. Patient has been tried on PPI, multiple allergy medications, and Mucinex with suboptimal control of his symptoms. She denies recent pulmonary function or allergy testing. Patient does have for CT scan from 2019 showing 7 mm pulmonary nodule with no further follow-up. After the last office visit patient has completed her pulmonary function tests that shows underlying moderate obstructive ventilatory defect. She also completed her CT chest that shows multiple right-sided nodules. Here 2D echo is essentially normal. Patient's immunologic workup so for is unrevealing. She does complain of cough productive of clear sputum. [facility] Medical History (Updated 03/05/23 @ 15:57 by Олег Greenberg MD) Allergic rhinitis with postnasal drip Exertional dyspnea Recurrent dry cough Vitamin D deficiency Breast cancer screening by mammogram Empty sella Hypercalcemia Pulmonary nodules Obesity Post menopausal syndrome Osteopenia of multiple sites Female stress incontinence Impaired fasting glucose Dyslipidemia Essential hypertension Surgical History History of tubal ligation History of tonsillectomy Family History Father Alcoholic Mental illness in member of household Mother Colon cancer Brother CVD (cardiovascular disease) Heart disease Brother Heart disease Sister No problems noted. Sister No problems noted. Sister No problems noted. Son No problems noted. Daughter No problems noted. Social History Housing: House Alcohol intake: current Patient Tobacco Use Status: Never used Tobacco e-Cigarette/Vaping Use: Never Used Current occupational status: retired Cognitive needs: No Hearing needs: No Vision needs: Yes Review of Systems Const Denies daytime sleepiness, Denies excessive sweating, Denies fatigue, Denies fever(s), Denies lethargy, Denies malaise, Denies night sweats, Denies snoring and Denies weight loss Eyes Denies blurry vision and Denies itchy eyes ENT Denies nasal congestion, Denies post nasal drip, Denies sinus pain, Denies sinus pressure and Denies other ( Thrush) Card Denies chest pain, Denies pedal edema, Denies dyspnea, Denies orthopnea and Denies paroxysmal nocturnal dyspnea Resp Reports cough, Denies hemoptysis, Reports excessive phlegm production, Denies dyspnea, Denies snoring and Denies wheezing GI Denies abdominal pain and Denies heartburn Musc Denies myalgias, Denies arthralgias and Denies joint swelling Skin/Breast Denies rash Neuro Denies memory loss and Denies seizure-like activity Psych Denies abnormal sleep pattern, Denies anxiety and Denies memory loss Endo Denies excessive sweating, Denies fatigue and Denies heat intolerance Brennon/Lymph Denies easy bruising Aller/Immun Denies itchy eyes, Denies seasonal rhinorrhea and Denies wheezing Physical Exam Vital Signs: Last Vital Signs Pulse 67 03/05/23 15:28 BP 138/82 03/05/23 15:28 Pulse Ox 97 03/05/23 15:28 Oxygen Delivery Method Room Air 03/05/23 15:28 BMI result Body Mass Index 35.1 Const General: no acute distress and alert Nutritional Appearance: not obese Orientation/consciousness: Other orientation findings ( oriented) HEENT Head: Yes atraumatic Eyes General: appearance normal, both eyes and all related structures Sclerae: sclerae normal EOM: EOMs intact bilaterally Neck Neck: Yes supple Lymphatic: no lymphadenopathy noted Resp Effort & Inspection: normal respiratory effort and no use of accessory muscles Auscultation: clear to auscultation bilaterally Cardio Rate: regular rate Rhythm: regular rhythm Heart sounds: no gallops, no murmurs and no rubs Skin General skin exam: other ( warm) Extrem General: No clubbing, No cyanosis and No edema Assessment & Plan Assessment & Plan (1) Pulmonary nodule 1 cm or greater in diameter: Code(s): R91.1 - Solitary pulmonary nodule Plan: Will obtain PET-CT for further evaluation. (2) Asthma: Code(s): J45.909 - Unspecified asthma, uncomplicated Plan: Results of PFT reviewed. Will start on empiric Breo. (3) Cough: Code(s): R05.9 - Cough, unspecified Plan: Now with productive component. Will treat with a course of Levaquin. Orders: Orders PET CT fusion skull to thigh Today R91.1 - Solitary pulmonary nodule Medications: New levofloxacin 500 mg PO DAILY 7 tabs 0RF Breo Ellipta 200-25 mcg/dose (fluticasone furoate-vilanterol) 1 inh inhalation Q24H 1 ea 6RF 30 days NS Coding Level of Care Code Est Pt Level 4 (42203) Diagnoses Pulmonary nodule 1 cm or greater in diameter R91.1 Asthma J45.909 Cough R05.9
== END 2023-03-05 15:56 | disposition home or self-care (01) ==
PROVIDERS: PCP Internal Medicine; Visit Provider Internal Medicine Pulmonary Disease
DX: R91.1 Solitary pulmonary nodule (principal); J45.909 Unspecified asthma, uncomplicated; R05.9 Cough, unspecified
CPT/HCPCS: 99214

== ENCOUNTER → 2023-03-05 15:26 | Outpatient (BNVA) | payer MEDICARE, SELFPAY | PROVIDERS: PCP Internal Medicine; Visit Provider Internal Medicine Pulmonary Disease | DX: J45.909 Unspecified asthma, uncomplicated (principal); R91.1 Solitary pulmonary nodule; R05.9 Cough, unspecified | CPT/HCPCS: 99212 ==

== ENCOUNTER 2023-03-07 11:55 | Emergency (ER) | payer MEDICARE, SELFPAY ==
--- NOTE | ~2023-03-07 | XR_ITS ---
EXAMINATION: XR CHEST CLINICAL INFORMATION: AMS. COMPARISON: CT chest 02/11/2023 TECHNIQUE: Frontal view of the chest was obtained. FINDINGS: The lungs are well-expanded with linear lobulated opacity right upper lobe similar [address] chest previously. No acute consolidation seen. Previous CT chest reveal multiple small pulmonary nodules. Heart size is enlarged. Pulmonary vascularity is normal. No gross bony abnormality seen. XR/XR chest 1V IMPRESSION: 1. Mild cardiomegaly. No acute process seen. 2. Lobulated linear opacity right upper lobe similar to CT chest 02/11/2023. Most likely lesion.
--- NOTE | ~2023-03-07 | CT_ITS ---
EXAMINATION: CT HEAD WITHOUT CONTRAST CLINICAL INFORMATION: Altered mental status. COMPARISON: Chest CT from 02/11/2023 demonstrating a suspicious pulmonary mass and nodules. TECHNIQUE: Contiguous axial imaging was performed from the skull base to vertex without intravenous administration of contrast. This CT examination was performed using dose optimization techniques as appropriate, variously including the following: *Automated exposure control *Adjustment of mA and/or kV according to patient size (this includes techniques or standardized protocols for targeted exams where dose is matched to indication/reason for exam; i.e. extremities or head) *Use of iterative reconstruction technique DLP: 488 mGy-cm. FINDINGS: There is a poorly-defined, heterogeneous large mass with peripheral high attenuation, which is suspected to reflect increased intratumoral cellularity. The lesion is centered in the anterior body and genu of the corpus callosum with distortion of the frontal horns of the lateral ventricles. The tumor may also be infiltrating into the forniceal columns in the midline. A large 2.8 x 4.5 x 3.1 cm low-density heterogeneous portion of the mass may reflect tumor necrosis or a complex cystic component. This portion of the mass extends from the corpus callosum into the anterior right frontal lobe. The foramen of Butler is secondarily partially effaced due to the location of the mass. No obstructive hydrocephalus is evident at this point in time. No acute intracranial hemorrhage identified. No abnormal midline shift is seen. [place] to white matter differentiation is well preserved. No extra-axial fluid collections are identified. The osseous structures and soft tissues are normal. The mastoid air cells and visualized portions of the paranasal sinuses are well aerated. CT/CT head/brain wo IV con IMPRESSION: Large hypercellular soft tissue mass with a suspected cystic versus necrotic component as described, involving the anterior body and genu of the corpus callosum, the right cingulate gyrus, and the right frontal lobe. Imaging findings are most suspicious for a high-grade glial neoplasm such as a glioblastoma multiforme. This alternatively may represent metastatic disease, given aforementioned lung pathology. Imaging findings reported to YADIRA Aguilera at 2:08 PM on 03/07/2023.
--- NOTE | 2023-03-07 12:07 | ED.GENADULT ---
HPI - General Adult General Chief complaint: General Medical Stated complaint: Lethargic, swollen feet - referred by Time Seen by Provider: 03/07/23 14:17 Source: patient and family (daughter) Mode of arrival: ambulatory Limitations: no limitations History of Present Illness HPI narrative: 82 year old female with pmhx significant for HTN, HDL, obesity presents today referred by PCP for evaluation of urinary incontinence, LE pedal edema, lethargy/ fatigue, slower to respond (talking, movement) and forgetfulness x2 weeks. Per patient's daughter, patient has been slower to respond to questions. She has been forgetful, especially when taking her medications. Daughter reports noticing that patient is mixing up the medications in her pill kuo. Could not remember what medications she was taking. Daughter suspected possible UTI however urine was negative for infection at PCP office. PCP then recommended that they come to the ED for further evaluation. Patient currently lives at home alone however her daughter lives down the street. Denies fall or injury. Denies seizure-like activity. Denies known brain lesions. Patient denies fever, chills, neck or back pain, chest pain, shortness of breath, abdominal pain, nausea or vomiting, flank pain, dysuria, hematuria, lower extremity swelling or pain. Related Data Home Medications Medication Instructions Recorded Confirmed fluticasone propionate 50 1 spray intranasal DAILY 01/23/21 06/06/22 mcg/actuation nasal spray,suspension (Aller-Kyle) cholecalciferol (vitamin D3) 25 25 mcg PO DAILY 11/12/22 mcg (1,000 unit) capsule cyanocobalamin (vitamin B-12) 1,000 mcg PO DAILY 11/12/22 1,000 mcg capsule Previous Rx's Medication Instructions Recorded fenofibrate nanocrystallized 145 145 mg PO DAILY #90 tabs 11/15/22 mg tablet fexofenadine 60 mg tablet 60 mg PO Q12H PRN allergy symptoms 01/11/23 #60 tabs olmesartan 20 1 tab PO DAILY #90 tabs 02/04/23 mg-hydrochlorothiazide 12.5 mg tablet oxybutynin chloride 15 mg 15 mg PO DAILY #90 tabs 02/08/23 tablet,extended release 24 hr Breo Ellipta 200 mcg-25 mcg/dose 1 inh inhalation Q24H 30 days #1 ea 03/05/23 powder for inhalation (fluticasone furoate-vilanterol) levofloxacin 500 mg tablet 500 mg PO DAILY #7 tabs 03/05/23 atenolol 100 mg tablet 100 mg PO DAILY #90 tabs 03/07/23 Allergies Allergy/AdvReac Type Severity Reaction Status Date / Time Flxoosd-ISO-QiR Reductase Allergy Severe SWELLING Verified 03/07/23 12:08 Inhibitor [Hmg-Coa Reductase Inhibitors (Stati] Review of Systems Review of Systems: Yes all other systems are reviewed and are negative PMFSH Past Medical History Attestation statement: The following information was validated with the patient. Source: old records reviewed and nursing notes reviewed Medical History Allergic rhinitis with postnasal drip Exertional dyspnea Recurrent dry cough Vitamin D deficiency Breast cancer screening by mammogram Empty sella Hypercalcemia Pulmonary nodules Obesity Post menopausal syndrome Osteopenia of multiple sites Female stress incontinence Impaired fasting glucose Dyslipidemia Essential hypertension Surgical History History of tubal ligation History of tonsillectomy Family History Family History Father Alcoholic Mental illness in member of household Mother Colon cancer Brother CVD (cardiovascular disease) Heart disease Brother Heart disease Sister No problems noted. Sister No problems noted. Sister No problems noted. Son No problems noted. Daughter No problems noted. Social History Social History Housing: House Alcohol intake: former Patient Tobacco Use Status: Never used Tobacco Smoked in Last 30 Days: No e-Cigarette/Vaping Use: Never Used Use of substances other than those prescribed or required for medical reasons: No Advance Directives: Yes Advance Directives on File: Yes Advance Directives Date on File: 09/15/21 Current occupational status: retired Cognitive needs: No Hearing needs: No Vision needs: Yes Physical Exam ED Vital Signs: Vital Signs - 24 hr 03/07/23 12:08 03/07/23 14:23 03/07/23 16:15 Temperature 97.3 F Pulse Rate 66 60 Respiratory Rate 18 16 Blood Pressure 170/88 H 173/71 H Pulse Oximetry 98 96 98 Oxygen Delivery Method Room Air Room Air Room Air BMI result Body Mass Index 35.5 Vital signs are stable, hypertensive to 170/88. Const Other: + patient is nontoxic appearing. Engaging conversation with her daughter. General: cooperative, healthy appearing, comfortable, no acute distress, alert and awake Orientation/consciousness: patient oriented x3 Limitations: no limitations HENMT Head: Yes normal to inspection, Yes No palpable skull fracture present, Yes normocephalic and Yes atraumatic Ears: hearing grossly normal bilaterally, external ears normal, TM's normal bilaterally, EAC's normal, mastoids normal and no periauricular adenopathy General nose exam: Normal external nose present and Normal nares present Face and sinus: Yes normal facial exam Eyes General: appearance normal, both eyes and all related structures Conjunctivae: conjunctivae normal Sclerae: sclerae normal Pupils: Equal, round and reactive pupils present EOM: EOMs intact bilaterally Neck Neck: Yes normal visual inspection, Yes full ROM and Yes no meningeal signs Resp Effort & Inspection: normal respiratory effort, able to speak in complete sentences, no cough and no respiratory distress Auscultation: clear to auscultation bilaterally Cardio Jugular venous distension: no JVD Rate: regular rate Rhythm: regular rhythm Peripheral pulses: radial pulses present GI Inspection: Yes normal to inspection Palpation (GI): Soft to palpation and nontender Back/Spine/Pelvis Other: No midline spinous tenderness. No paraspinal muscle tenderness. No step off deformity. Skin General skin exam: no rashes or lesions noted Neuro Other: + patient is AOx4. + ambulating with steady gait. + slow to respond to answers. Answering inappropriately at times. General: patient oriented x3, gait normal, moves all extremities and no meningeal signs Cranial nerves: Yes Equal, round and reactive pupils present and Yes Nystagmus not present Motor exam (neuro): 5/5 motor strength present throughout and Pronator motor function not present Coordination: [id number] test normal, [id number] test normal and Normal rapid alternating movements of the distal upper extremity present (Neuro) Extrem General: Yes normal to inspection and Yes full ROM Course Course Course Narrative: RME: 82yo F w/PMHx HTN, HLD, obesity, referred by PCP for AMS, urinary incontinence, LE pedal edema, lethargic/fatigue, slower to respond (ie. talking/movement), forgetful x2 weeks. Patient lives home alone, daughter lives down street. No reported falls. Just saw [facility] on 03/05 and was started on Levaquin for cough 2+ b/l LE pitting edema, A&Ox3, no focal deficits EKG, Labs, UA, CXR, Head CT, ordered Full HPI, ROS and PE to be performed by primary ED provider. Reevaluation(s) Reevaluation #1: [id number]-- My colleague, Mallory DODSON, received report from [facility] regarding CT head/brain. There is a poorly defined heterogeneous large mass centered in the anterior body and genu of the corpus callosum with distortion of the frontal horns of the lateral ventricles. The tumor may also be infiltrating into the forniceal columns in the midline. There is a large 2.8 x 4.5 x 3.1 cm low-density heterogeneous portion of the mass possibly reflecting tumor necrosis or complex cystic component. This portion extends from the corpus callosum into the anterior right frontal lobe. The foramin of fish is secondarily partially effaced due to the location of the mass. No obstructive hydrocephalus or midline shift. On review of patient's chart, patient had a chest CT performed on 02/11 ordered by her technician biological health which shows multiple bilateral lung nodules, likely mets, along with a right upper lobe lung mass. 1500-- On re-evaluation, patient's daughter states that they were informed of the chest CT findings however upon speaking to them, it is clear they do not understand the severity of these findings. Patient's daughter informs me that PET scan is scheduled for further work up. > I informed patient and patient's daughter of CT head/brain results, stating that the patient has a mass in the frontal lobe of her brain that is contributing to her symptoms and that this mass is likely cancerous. I informed them that it may be a glioblastoma which is a brain tumor or a possible metastatic lesion from another cancerous tumor within the body. I informed them that I will be contacting Neurosurgery at [facility] to determine further care/recommendation and possible transfer. Patient is aware, alert, and able to make her own medical decisions. Patient and her daughter verbalized understanding of this. > 10 mg IV decadron ordered 1535-- Spoke with Neurosurgery Deb MAY, at [facility] who is requesting CT be uploaded to [facility] for them to review. They will call back with recommendation. 1623-- Spoke with neurosurgery Deb MAY who recommends transfer to [facility] for further evaluation, MRI with and without contrast, and q4 hour neuro exams. Patient and patient's daughter are agreeable with transfer.. > spoke with hospitalist Kyra who will admit patient directly to neurosurgery with accepting physician. Dr. Hall. > patient has remained stable while in ED. patient to be transferred via EMS BLS. Medications Administered Discontinued Medications Generic Name Dose Route Start Last Admin Trade Name Sam PRN Reason Stop Dose Admin Dexamethasone Sodium Phosphate 10 mg 03/07/23 14:58 03/07/23 15:41 Dexamethasone Sod Phosphate 10 Mg/Ml Vial IVPUSH 03/07/23 14:59 10 mg ONCE ONE Administration Sodium Chloride 1,000 mls @ 999 mls/hr 03/07/23 14:30 03/07/23 17:41 Ns IV 03/07/23 15:30 Infused .Q1H1M ADNREA Infusion Medical Decision Making Medical Decision Making [facility] Narrative: 82 year old female with pmhx significant for HTN, HDL, obesity presents today referred by PCP for evaluation of urinary incontinence, LE pedal edema, lethargy/ fatigue, slower to respond (talking, movement) and forgetfullness x2 weeks. Vital signs notable for hypertension, otherwise within normal limits. Patient is nontoxic appearing and in no acute distress. A&O x4. Answering questions inappropriately at times. 2+ pitting edema to bilateral LE. No JVD. RRR. Lungs are CTA bilaterally. Exam is nonfocal. Cerebellum intact. Ambulating with steady gait. Clinical concern for UTI, pneumonia, brain lesion, dementia. Unlikely CVA/TIA, dissection, cerebellar stroke. Labs, UA, chest x-ray, head CT ordered in triage. Plan for review and re-evaluation. Differential Diagnosis Differential Diagnoses: The differential diagnosis associated with the presentation includes as above. Admission/Observation Consideration of admission/observation: Escalation of care including admission/observation considered This 82-year-old female with new brain mass identified on imaging will be transferred to [facility] Neurosurgery. Consult Healthcare Provider Management of the patient was discussed with: Hospitalist ([facility]) and Residential Case Manager (Neurosurgery YADIRA Boyd at [facility]) Lab Data [facility] Lab Attestation statement: I reviewed the patient's lab results. as above. 03/07/23 13:06 12/21/23 13:06 Labs: Lab Results 03/07/23 03/07/23 Range/Units 13:06 15:18 WBC 4.5 L (4.8-10.8) X10*3/uL RBC 3.74 L (4.20-5.50) X10*6/uL Hgb 10.5 L (12.0-16.0) g/dl Hct 32.3 L (37.0-47.0) % MCV 86.4 (80.0-98.0) fL MCH 28.1 (27.0-33.0) pg MCHC 32.5 (31.0-35.0) g/dl RDW 13.8 (11.0-16.0) % Plt Count 250 (160-400) X10*3/uL MPV 9.6 (9.4-12.3) fL Immature Gran % (Auto) 0.4 (0.0-0.4) % Neut % (Auto) 65.3 (45-73) % Lymph % (Auto) 22.8 (20-40) % Gibson % (Auto) 9.5 (2-11) % Eos % (Auto) 1.6 (0-4) % Baso % (Auto) 0.4 (0-2) % Lymph # (Auto) 1.0 L (1.2-4.9) X10*3/uL Gibson # (Auto) 0.4 (0.1-1.2) X10*3/uL Eos # (Auto) 0.1 (0.0-0.4) X10*3/uL Baso # (Auto) 0.0 (0.0-0.2) X10*3/uL Abs Immat Gran (auto) 0.02 (0.00-0.03) X10*3/uL Absolute Neuts (auto) 2.9 (2.0-8.3) x10*3/uL Absolute Nucleated RBC 0.000 (0.0-0.012) X10*3/uL Nucleated RBC % (auto) 0.0 (0.0-0.2) /100WBC PT 12.7 (11.1-13.3) SEC INR 1.0 (0.9-1.1) Sodium 131 L (135-145) mmol/L Potassium 4.2 (3.3-5.1) mmol/L Chloride 98 (96-108) mmol/L Carbon Dioxide 26 (22-29) mmol/L Anion Gap 11 L (12-20) BUN 18 H (9-16) mg/dL Creatinine 0.88 (0.5-1.4) mg/dL Estim Creat Clear Calc 47.0 Estimated GFR > 60 Random Glucose 109 (60-115) mg/dL Calcium 10.7 H (8.4-10.2) mg/dL Magnesium 1.9 (1.6-2.6) mg/dL Total Bilirubin 0.4 (0.0-1.0) mg/dL Direct Bilirubin 0.2 (0.0-0.5) mg/dL AST 19 (5-31) U/L ALT 11 (0-31) U/L Alkaline Phosphatase 43 (39-117) U/L Ammonia 27 (13-55) umol/L Troponin I High Sens < 2.7 (<3.5-17.0) ng/L B-Natriuretic Peptide 78 (<100) pg/mL Total Protein 7.1 (6.5-8.0) g/dL Albumin 4.1 (3.5-5.0) g/dL Urine Color Yellow Urine Appearance Cloudy Urine pH 7.5 (5.0-9.0) Ur Specific [place] 1.010 (1.005-1.025) Urine Protein Negative (Neg-Trace) mg/dL Urine Glucose (UA) Negative (Negative) mg/dL Urine Ketones Negative (Negative) mg/dL Urine Blood Negative (Negative) Urine Nitrite Negative (Negative) Ur Leukocyte Esterase Moderate (2+) H (Negative) Urine RBC 0-2 (0-2) /HPF Urine WBC 11-20 H (0-5) /HPF Ur Squamous Epith Cells 0-2 (0-2) /HPF Urine Bacteria None Seen (None Seen) Hyaline Casts 0-2 (0-2) /LPF Influenza Type A (PCR) NEGATIVE (Negative) Influenza Type B (PCR) NEGATIVE (Negative) RSV RNA Qual (PCR) NEGATIVE (Negative) SARS-CoV-2 RNA (RT-PCR) NEGATIVE (Negative) Independent Interpretation I performed an independent interpretation of an: EKG, Plain X-Ray and CT Scan Interpretation: EKG showing sinus rhythm with 1st degree AV block, rate of 65 beats per minute, QT 408, QTC 424, no acute ischemic changes or ST elevations. CXR showing showing opacity w/in right upper lobe, agree with radiologist's interpretation. CT head/brain showing large mass within the frontal lobe, no shift, agree with radiologist's interpretation. Radiology Impression Discussion of test interpretation with radiology: I have reviewed the radiologist's reading. Radiologist Impression: CT head/brain wo IV con IMPRESSION: Large hypercellular soft tissue mass with a suspected cystic versus necrotic component as described, involving the anterior body and genu of the corpus callosum, the right cingulate gyrus, and the right frontal lobe. Imaging findings are most suspicious for a high-grade glial neoplasm such as a glioblastoma multiforme. This alternatively may represent metastatic disease, given aforementioned lung pathology. Imaging findings reported to YADIRA Aguilera at 2:08 PM on 03/07/2023. XR chest 1V IMPRESSION: 1. Mild cardiomegaly. No acute process seen. 2. Lobulated linear opacity right upper lobe similar to CT chest 02/11/2023. Most likely lesion. Independent Historian Clinical information obtained from an independent historian. History obtained from or confirmed by: Other (daughter) External Record Review External record reviewed: Inpatient record, Office record, Outpatient record, Prior outpatient labs, Prior outpatient radiology, Primary care record and Outside ED record Prescription Management I considered prescription management with: Other (steroid) Chronic Conditions Patient?s care impacted by: Other (lung nodules) Critical Care Time Critical Care Time Critical Care Time: Yes Total Critical Care Time: 90 Attestation: Critical care time in the amount of 90 minutes has been provided to the patient in terms of direct patient care, frequent reevaluation, consultation with [facility] Neurosurgery, [facility] Hospitalist, review and interpretation of medical data and results, and management of potentially life-threatening conditions. This is all outside of any medical procedures. Discharge Plan Discharge Clinical Impression: Brain mass, Pulmonary nodules Patient Disposition: [facility] Transfer Details: [facility] Neurosurgery direct admit via BLS, accepting physician Dr. Hall Additional Instructions: CT head/brain is showing: Large hypercellular soft tissue mass with a suspected cystic versus necrotic component as described, involving the anterior body and genu of the corpus callosum, the right cingulate gyrus, and the right frontal lobe. Imaging findings are most suspicious for a high-grade glial neoplasm such as a glioblastoma multiforme. This alternatively may represent metastatic disease, given aforementioned lung pathology. Prescriptions: No Action fenofibrate nanocrystallized 145 mg tablet 145 mg PO DAILY Qty: 90 1RF fexofenadine 60 mg tablet 60 mg PO Q12H PRN (Reason: allergy symptoms) Qty: 60 0RF olmesartan-hydrochlorothiazide 20-12.5 mg tablet 1 tab PO DAILY Qty: 90 1RF oxybutynin chloride 15 mg tablet extended release 24hr 15 mg PO DAILY Qty: 90 0RF atenolol 100 mg tablet 100 mg PO DAILY Qty: 90 1RF fluticasone propionate [Aller-Kyle] 50 mcg/actuation spray,suspension 1 spray intranasal DAILY Rx Instructions: administer into each nostril cholecalciferol (vitamin D3) 25 mcg (1,000 unit) capsule 25 mcg PO DAILY cyanocobalamin (vitamin B-12) 1,000 mcg capsule 1,000 mcg PO DAILY levofloxacin 500 mg tablet 500 mg PO DAILY Qty: 7 0RF fluticasone furoate-vilanterol [Breo Ellipta] 200-25 mcg/dose blister with device 1 inh inhalation Q24H 30 Days Qty: 1 6RF Discharge Date/Time: 03/07/23 17:42
[2023-03-07 12:08] VITALS: BP 170/88; PULSE 66; RESP 18; TEMP 36.3; O2SAT 98; BMI 35.5
--- NOTE | 2023-03-07 12:12 | ECG_ITS ---
Test Reason : sob Blood Pressure : / mmHG Vent. Rate : 065 BPM Atrial Rate : 065 BPM P-R Int : 282 ms QRS Dur : 090 ms QT Int : 408 ms P-R-T Axes : 074 -08 020 degrees QTc Int : 424 ms Sinus rhythm with 1st degree A-V block Otherwise normal ECG When compared with ECG of 20-APR-2015 08:33, No significant changes seen Referred By: Mallory Aguilera Electronically Signed By:MAHESH BOSS MD
[2023-03-07 13:13] LABS: MANUAL DIFF FLAG NO
[2023-03-07 13:17] LABS: Basophils Percent Auto 0.4 % (0-2); Eosinophils Absolute Auto 0.1 X10*3/uL (0.0-0.4); Eosinophils Percent Auto 1.6 % (0-4); Hematocrit 32.3 % (37.0-47.0); Hemoglobin 10.5 g/dl (12.0-16.0); Imm Gran Abs Auto 0.02 X10*3/uL (0.00-0.03); Imm Gran Pct Auto 0.4 % (0.0-0.4); Lymphocytes Percent Auto 22.8 % (20-40); Mean Corpuscular HGB Conc 32.5 g/dl (31.0-35.0); Mean Corpuscular Hemoglobin 28.1 pg (27.0-33.0); Mean Corpuscular Volume 86.4 fL (80.0-98.0); Mean Platelet Volume 9.6 fL (9.4-12.3); Monocytes Absolute Auto 0.4 X10*3/uL (0.1-1.2); Monocytes Percent Auto 9.5 % (2-11); Neutrophils Absolute Auto 2.9 x10*3/uL (2.0-8.3); Neutrophils Percent Auto 65.3 % (45-73); Platelet Count 250 X10*3/uL (160-400); Red Blood Count 3.74 X10*6/uL (4.20-5.50); Red Cell Distribution Width 13.8 % (11.0-16.0); White Blood Count 4.5 X10*3/uL (4.8-10.8)
[2023-03-07 13:20] LABS: Ammonia 27 umol/L (13-55)
[2023-03-07 13:29] LABS: Alanine Aminotransferase 11 U/L (0-31); Albumin Level 4.1 g/dL (3.5-5.0); Alkaline Phosphatase 43 U/L (39-117); Anion Gap 11 (12-20); Aspartate Amino Transferase 19 U/L (5-31); Bilirubin Direct 0.2 mg/dL (0.0-0.5); Bilirubin Total 0.4 mg/dL (0.0-1.0); Blood Urea Nitrogen 18 mg/dL (9-16); Calcium 10.7 mg/dL (8.4-10.2); Carbon Dioxide 26 mmol/L (22-29); Chloride 98 mmol/L (96-108); Estimated Glomerular Filt Rate > 60; Glucose Random 109 mg/dL (60-115); Magnesium 1.9 mg/dL (1.6-2.6); Potassium 4.2 mmol/L (3.3-5.1); Sodium 131 mmol/L (135-145); Total Protein 7.1 g/dL (6.5-8.0)
[2023-03-07 13:35] LABS: B Type Natriuretic Peptide 78 pg/mL (<100); Prothrombin Time 12.7 SEC (11.1-13.3)
[2023-03-07 13:41] LABS: Troponin-I High Sensitivity < 2.7 ng/L (<3.5-17.0)
[2023-03-07 13:54] LABS: Influenza A PCR NEGATIVE (Negative); Influenza B PCR NEGATIVE (Negative); Resp Syncy Virus RNA Qual PCR NEGATIVE (Negative); SARS COV2 PCR INHOUSE NEGATIVE (Negative)
[2023-03-07 14:23] VITALS: O2SAT 96
--- NOTE | 2023-03-07 14:26 | PC.NURSE ---
Patient/ daughter reports that patient has been more forgetful for the last few weeks. Reports too
--- NOTE | 2023-03-07 14:27 | PC.NURSE ---
Per patient/ daughter patient has been more confused and slow to respond over the past few week. Daughter reports patient mixed up her BP and urinary meds about 2 weeks ago. Bilat ankles with new onset swellng that started about 2 days ago . Reports was tested for uti and was told it was negative, but reports new urinary incontinene
[2023-03-07] MEDS: 0.9 % Sodium Chloride 1,000 ML 999 ML IV (14:38)
[2023-03-07 15:28] LABS: Appearance Urine Cloudy; Color Urine Yellow; Glucose Urine UA Negative (Negative); Leukocyte Esterase Urine Moderate (2+) (Negative); Nitrite Urine Negative (Negative); PH 7.5 (5.0-9.0); UMIC TRIGGER UACC YES; Urine Blood Negative (Negative); Urine Ketones Negative (Negative); Urine Protein Negative (Neg-Trace)
[2023-03-07 15:30] LABS: Bacteria Urine None Seen (None Seen); Hyaline Casts Urine 0-2 /LPF (0-2); RBC Urine 0-2 /HPF (0-2); Squamous Epithelial Cell Urine 0-2 /HPF (0-2); UACC Culture Trigger YES
[2023-03-07] MEDS: dexAMETHasone sod phosphate 10 MG/ML VIAL IVPUSH (15:41)
[2023-03-07 16:15] VITALS: BP 173/71; PULSE 60; RESP 16; O2SAT 98
--- NOTE | 2023-03-07 17:24 | PC.NURSE ---
Report given to [facility] at [phone]
== END 2023-03-07 17:42 | disposition short-term general hospital (02) ==
PROVIDERS: Physician Assistant; Emergency Provider Emergency Medicine; PCP Internal Medicine
DX: R60.0 Localized edema (principal); R91.1 Solitary pulmonary nodule; N39.41 Urge incontinence; R41.82 Altered mental status, unspecified; R06.02 Shortness of breath; Z79.899 Other long term (current) drug therapy; R94.31 Abnormal electrocardiogram [ECG] [EKG]; R11.2 Nausea with vomiting, unspecified; Z20.822 Contact with and (suspected) exposure to COVID-19; Z20.828 Contact with and (suspected) exposure to other viral communicable diseases
CPT/HCPCS: 0241U; 36415; 70450; 71045; 80048; 80076; 81001; 82140; 83735; 83880; 84484; 85025; 85610; 87086; 93005; 96361; 96374; 99284; J1100

== ENCOUNTER → 2023-03-07 12:12 | Outpatient (BNV) | payer MEDICARE, SELFPAY | PROVIDERS: Emergency Provider Emergency Medicine; PCP Internal Medicine; Visit Provider Internal Medicine Cardiovascular Disease | DX: I44.0 Atrioventricular block, first degree (principal) | CPT/HCPCS: 93010 ==

== ENCOUNTER 2023-04-19 06:57 | Outpatient (REF) | payer MEDICARE, SELFPAY ==
[2023-04-19 12:20] LABS: Anion Gap 16 (12-20); Blood Urea Nitrogen 28 mg/dL (9-16); Calcium 10.1 mg/dL (8.4-10.2); Carbon Dioxide 27 mmol/L (22-29); Chloride 99 mmol/L (96-108); Estimated Glomerular Filt Rate > 60; Glucose Fasting 224 mg/dL (60-99); Potassium 4.4 mmol/L (3.3-5.1); Sodium 138 mmol/L (135-145)
[2023-04-20 13:32] LABS: Calcium, Ionized 5.6 mg/dL (4.7-5.5)
== END 2023-04-19 06:58 | disposition home or self-care (01) ==
LOC: HO.HMGCLDS 06:57
PROVIDERS: PCP Internal Medicine; Visit Provider Internal Medicine
DX: E83.52 Hypercalcemia (principal); R73.01 Impaired fasting glucose; I10 Essential (primary) hypertension; E87.1 Hypo-osmolality and hyponatremia
CPT/HCPCS: 36415; 80048; 82330; 83970

== ENCOUNTER 2023-04-26 08:38 | Outpatient (AMB) | payer MEDICARE, SELFPAY ==
[2023-04-26 09:07] VITALS: BP 136/80; PULSE 62; O2SAT 98; BMI 34.9
--- NOTE | 2023-04-26 09:07 | A.OFFPC_ITS ---
Vital Signs 04/26/23 09:07 Height 4 ft 11.5 in Weight 176 lb BMI 34.9 BP 136/80 Blood Pressure Location Rt brachial Position Sitting Pulse 62 Pulse Source Pulse Oximeter Pulse Oximetry (%) 98 Intake Visit Reasons: HDF [facility] Frontal lobe mass Intake Note: Pt is here today for HDF [facility] frontal lobe mass Allergies Ycurydj-VVP-MwV Reductase Inhibitor [Hmg-Coa Reductase Inhibitors (Stati] Allergy (Severe, Verified 04/28/23 16:53) SWELLING Medication List - Last Reconciled 04/28/23 by Adrienne Ruiz MD amlodipine-olmesartan 10-20 mg 1 tab PO DAILY atenolol 100 mg PO DAILY Breo Ellipta 200-25 mcg/dose (fluticasone furoate-vilanterol) 1 inh inhalation Q24H 30 days NS dexamethasone 2 mg PO BID fenofibrate nanocrystallized 145 mg PO DAILY omeprazole 20 mg PO DAILY oxybutynin chloride ER 15 mg PO DAILY Tobacco use date assessed: 04/26/23 Fall risk assessment: No Falls in past year Last assessed Fall Risk: 04/26/23 Dental Screening Dental Screen Date: 04/26/23 Did you have a dental visit in the last 12 months?: Yes Did you have a dental problem in the last 6 months where you did not have access to dental care?: No Was dental information given to patient?: Patient has dentist HPI HDF [facility] Frontal lobe mass HPI Details 82-year-old lady with history of hyperli pidemia, hypertension, urinary incontinence to recently admitted at [facility] for altered mental status and was found to have frontal brain mass on imaging study. She was placed on steroids to decrease vasogenic edema and underwent brain biopsy 03/15/2023. CT of chest/abdomen/pelvis showed no evidence of primary tumor . She has scattered pulmonary nodules that are considered benign as they have not changed since 2019. She was recently seen by her neurosurgeon on 04/09/2023, Dr. Kimbrough who did her biopsy S, but unfortunately results were nondiagnostic. MRI of brain done showed right frontal tremor to have decreased in size, with less prominent enhancement as compared to her initial imaging. Patient was informed of the findings, and in the absence of tissue, diagnosis could not be certain. However her radiographic response while on steroids of a shrunken tumor are at least suggestive of lymphoma. Repeat biopsy was discussed with patient, as well as other modalities of diagnosis including a lumbar puncture, however patient was hesitant to have any of these done. She was then referred to Oncology for further consideration of treatment. Blood pressure during her admission was noted to be elevated was initially on atenolol on olmesartan-HCTZ. She was continued on atenolol and olmesartan but hydrochlorothiazide was discontinued and was placed on amlodipine 10 mg daily. Blood pressure now is within normal limits. She was noted to have elevatekd ionized calcium and it parathyroid hormone , does hydrochlorothiazide was discontinued, repeat BMP still showed elevated calcium levels Patient during hospital admission ,had a score for TATIANA 4-5 point suggestive of at least intermediate risk for moderate to severe obstructive sleep apnea. Recommended to have an outpatient sleep study . As per recruiting team lead patient does snore a lot and has been noted to be frequently napping during the day. 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 Sister No problems noted. Sister No problems noted. Son No problems noted. Daughter No problems noted. Social History Housing: House Alcohol intake: former Patient Tobacco Use Status: Never used Tobacco e-Cigarette/Vaping Use: Never Used Advance Directives Date on File: 09/15/21 Current occupational status: retired Cognitive needs: No Hearing needs: No Vision needs: Yes Questionnaire PHQ-9 Over the last 2 weeks, how often have you been bothered by any of the following problems? 1. Little interest or pleasure in doing things: not at all 2. Feeling down, depressed, or hopeless: not at all 3. Trouble falling or staying asleep, or sleeping too much: not at all 4. Feeling tired or having little energy: not at all 5. Poor appetite or overeating: not at all 6. Feeling bad about yourself - or that you are a failure or have let yourself or your family down: not at all 7. Trouble concentrating on things, such as reading the newspaper or watching television: not at all 8. Moving or speaking so slowly that other people could have noticed. Or the opposite - being so fidgety or restless that you have been moving around a lot more than usual: not at all 9. Thoughts that you would be better off or of hurting yourself in some way: not at all Total score: 0 Depression Screening Interpretation: Negative Depression Screening Done: Yes 07172 - PHQ-9 Billing: Yes Source: Developed by Drs. Edinson Junior, Linda Little, Giovanni Kramer and colleagues, with an educational johanna from [employer]. Thrive Questionnaire Date Thrive assessed: 04/26/23 I am a: Patient What is your living situation today?: I have a steady place to live Within the past 12 months, did the food you bought not last and you didn't have the money to get more?: Never true Within the past 12 months, did you worry whether your food would run out before you got money to buy more?: Never true Do you have trouble paying for medicines?: No Do you have trouble getting transportation to medical appointments?: No Do you have trouble paying your heating and electricity bill?: No Do you have trouble taking care of your child, family member or friend?: No Do you have trouble with day-to-day activities such as bathing, preparing meals, shopping, managing finances, etc.?: No Are you currently unemployed and looking for a job?: No Are you interested in more education?: No THRIVE Score: 0 AUDIT C Alcohol Use Questionnaire (AUDIT-C) 1. How often do you have a drink containing alcohol?: Never Total Score: 0 ERYN-7 AMB Questionnaire ERYN-7 Date ERYN - 7 assessed: 04/26/23 Feeling nervous, anxious, or on edge: 0 = Not at all Not being able to stop or control worryin = Not at all Worrying too much about different things: 0 = Not at all Trouble relaxin = Not at all Being so restless that it is hard to sit still: 0 = Not at all Becoming easily annoyed or irritable: 0 = Not at all Feeling afraid as if something awful might happen: 0 = Not at all Total ERYN-7 score (0-4 normal; 5-9 mild; 10-14 moderate; 15-21 severe): 0 Source: Developed by Drs. Edinson Junior, Linda Little, Giovanni Kramer and colleagues, with an educational johanna from [employer]. ERYN-7 Assessment Billing ERYN-7 Assessment Tool: ERYN-7 Assessment 59880 Review of Systems Const Denies body aches, Denies fatigue, Denies fever(s), Denies headache(s), Denies lethargy, Denies malaise and Denies weight loss Eyes Denies change in vision ENT Reports Normal hearing present, Denies headache(s), Denies nasal congestion and Denies sinus pain Card Denies chest pain, Denies pedal edema, Denies dyspnea and Denies orthopnea Resp Denies hemoptysis, Denies dyspnea and Denies wheezing GI Denies abdominal pain and Denies heartburn Denies difficulty voiding, Denies dysuria and Reports urinary incontinence Musc Denies myalgias, Denies arthralgias and Denies joint swelling Skin/Breast Denies rash Neuro Reports Normal hearing present, Denies headache(s), Denies seizure-like activity and Denies Sensory deficit (Neuro) Psych Denies abnormal sleep pattern and Denies anxiety Endo Denies fatigue and Denies heat intolerance Brennon/Lymph Denies easy bruising Aller/Immun Denies seasonal rhinorrhea and Denies wheezing Physical exam (Primary Care) Vital Signs: Last Vital Signs Pulse 62 04/26/23 09:07 BP 136/80 04/26/23 09:07 Pulse Ox 98 04/26/23 09:07 BMI result Body Mass Index 34.9 Tobacco/Smoking Status: Tobacco use Status Tobacco use date assessed 04/26/23 04/26/23 09:17 Patient Tobacco Use Status Never used Tobacco 04/26/23 09:17 e-Cigarette/Vaping Use Never Used 04/26/23 09:17 PHQ-9: PHQ-9 Score PHQ-9: Total score 0 04/26/23 10:02 Depression Screening Interpretation: Negative Thrive Assessment: Date of Thrive Assessment Date Thrive assessed 04/26/23 04/26/23 09:21 Const Other: Accompanied by daughter General: comfortable and no acute distress Nutritional Appearance: obese Orientation/consciousness: patient oriented x3 HENMT Head: Yes normocephalic Ears: external ears normal, TM's normal bilaterally and EAC's normal General nose exam: Normal external nose present Face and sinus: Yes face symmetric Mouth: Normal oral and palatal mucosa present and moist mucous membranes Eyes General: appearance normal, both eyes and all related structures Neck Neck: Yes full ROM, Yes no lymphadenopathy and Yes supple Resp Auscultation: clear to auscultation bilaterally Cardio Rate: regular rate Rhythm: regular rhythm Heart sounds: S1 normal heart sound present and S2 normal heart sound present GI Palpation (GI): Soft to palpation, nontender and no guarding General: Yes no CVA tenderness Back/Spine/Pelvis Back: no CVA tenderness and No back tenderness Skin General skin exam: no rashes or lesions noted Neuro General: patient oriented x3, gait normal, tone normal, moves all extremities, Normal light touch and pain sensation and no focal motor deficits Cranial nerves: Yes Normal hearing present Sensory Exam: No Sensory deficit (Neuro) Extrem General: Yes full ROM, Yes no joint enlargement, Yes no pedal edema and Yes normal gait Psych Appearance: grossly normal and well kempt Mental Status: mental status grossly normal Speech and movement: Normal speech and movement present Affect: normal affect Attitude: cooperative Thought process: Normal thought process present Assessment and Plan Assessment & Plan (1) Frontal mass of brain: Code(s): G93.89 - Other specified disorders of brain Plan: Biopsy of her mass was nondiagnostic, patient does not want to have a repeat biopsy done nor does she want to consider lumbar puncture at this point in time, patient has been referred by her neurosurgeon to Oncology for further evaluation and management. (2) Essential hypertension: Code(s): I10 - Essential (primary) hypertension Plan: Improved blood pressure control peer Continue with atenolol and olmesartan- amlodipine. Reinforced importance of following a low sodium diet, getting regular exercise, and lowering stress levels. 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: Code(s): G47.9 - Sleep disorder, unspecified Plan: Ordered sleep study (4) Excessive daytime sleepiness: Code(s): G47.19 - Other hypersomnia Plan: Sleep study ordered (5) Hypercalcemia: Code(s): E83.52 - Hypercalcemia Plan: Ordered ultrasound of thyroid/neck (6) Female stress incontinence: Code(s): N39.3 - Stress incontinence (female) (male) Plan: Continue with oxybutynin chloride ER15 mg daily (7) Hyperglycemia: Code(s): R73.9 - Hyperglycemia, unspecified Plan: Hemoglobin A1c during her admission was 5.9%, elevations in her blood sugar likely due to dexamethasone, will continue to monitor blood sugar level (8) Dyslipidemia: Code(s): E78.5 - Hyperlipidemia, unspecified Plan: Continue with fenofibrate Orders: Orders US thyroid 04/26/23 E83.52 - Hypercalcemia, R79.89 - Other specified abnormal findings of blood chemistry Referrals Sleep Medicine Referral G47.19 - Other hypersomnia, G47.9 - Sleep disorder, unspecified, R06.83 - Snoring Coding Level of Care Code Est Pt Level 4 (18224) Diagnoses Frontal mass of brain G93.89 Essential hypertension I10 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
== END 2023-04-26 10:42 | disposition home or self-care (01) ==
PROVIDERS: PCP Internal Medicine; Visit Provider Internal Medicine
DX: G93.89 Other specified disorders of brain (principal); I10 Essential (primary) hypertension; G47.9 Sleep disorder, unspecified; G47.19 Other hypersomnia; E83.52 Hypercalcemia; N39.3 Stress incontinence (female) (male); R73.9 Hyperglycemia, unspecified; E78.5 Hyperlipidemia, unspecified
CPT/HCPCS: 99214